=== PATIENT | female | born 1955 | race Two or more races ===

== ENCOUNTER 2024-03-31 15:44 | Inpatient (IN) | payer MEDICARE, OTHER ==
[~2024-03-31] VITALS: Ht 144.8 cm; Wt 55.0 kg
[2024-03-31] MEDS: IPRATROPIUM BROM 0.5 MG/2.5ML INH SOL NEB ONE (16:30)
[2024-03-31] MEDS: ALBUTEROL SULF 2.5 MG/0.5ML(0.5%) NEB SOLN NEB ONE (16:30)
[2024-03-31 16:38] LABS: Basophils # (auto) 0 10 ^3/uL (0-0.2); Basophils % (auto) 0.5 % (0.0-2.0); Eosinophils # (auto) 0 10 ^3/uL (0-0.8); Eosinophils % (auto) 0.6 % (0.0-7.0); Hematocrit 29.7 % (36.0-46.0); Hemoglobin 9.3 g/dL (12.2-16.2); Lymphocytes # (auto) 1.3 10 ^3/uL (0.4-5.4); Lymphocytes % (auto) 24.3 % (10.0-50.0); Mean Corpuscular Hemoglobin 25.8 pg (28.0-32.0); Mean Corpuscular Hgb Conc. 31.5 g/dL (32.0-36.0); Monocytes # (auto) 0.7 10 ^3/uL (0-1.3); Monocytes % (auto) 13.6 % (0.0-12.0); Neutrophils # (auto) 3.2 10 ^3/uL (1.6-8.6); Nucleated Red Blood Cells % 0.1 %; Platelet Count (auto) 279 10^3/uL (140-450); Red Blood Cells 3.62 10^6/uL (4.0-5.20); White Blood Cell 5.3 10^3/uL (4.4-10.8)
[2024-03-31 16:39] LABS: Red Cell Distribution Width 22.2 % (11.8-14.3)
[2024-03-31] MEDS: PIPERACILLIN-TAZOB 3.375GM 100 ML IV ONE (17:15)
[2024-03-31 17:34] LABS: Albumin 3.3 g/dL (3.2-4.8); Alkaline Phosphatase 109 U/L (46-116); Anion Gap 7 (5-15); Aspartate Aminotransferase < 8 U/L (13-40); BUN/Creatinine Ratio 14.7 (10.0-20.0); Blood Urea Nitrogen 16 mg/dL (9-23); Calcium 8.5 mg/dL (8.7-10.4); Carbon Dioxide 24 mmol/L (20-30); Chloride 110 mmol/L (98-107); Glucose 89 mg/dL (74-106); Magnesium 1.6 mg/dL (1.6-2.6); Potassium 3.7 mmol/L (3.5-5.1); Sodium 141 mmol/L (136-145)
[2024-03-31 17:35] LABS: Bilirubin, Total 0.8 mg/dL (0.2-1.0); Total Protein 5.9 g/dL (5.7-8.2)
[2024-03-31 18:29] LABS: Alanine Aminotransferase < 9 U/L (7-40)
[2024-03-31] MEDS: HYDROcodone-ACET 5/325MG TAB PO ONE (18:33)
[2024-03-31 19:21] LABS: Lactic Acid w/Reflex 2.6 mmol/L (0.4-2.0)
[2024-03-31 20:45] VITALS: PULSE 79; RESP 25; O2SAT 97
[2024-03-31] MEDS: NITROGLYCERIN 0.4 MG SL TAB SL ONE (21:36)
[2024-03-31] MEDS: FUROSEMIDE 100 MG/10ML VIAL IV ONE (21:37)
[2024-03-31] MEDS: levoFLOXacin 500 MG TAB PO ONE (21:46)
[2024-03-31] MEDS ORDERED: DOCUSATE SOD 100 MG CAP PO PRN (22:00)
[2024-03-31] MEDS ORDERED: ACETAMINOPHEN 325 MG TAB PO PRN (22:00)
[2024-03-31] MEDS ORDERED: IPRATROPIUM BROM 0.5 MG/2.5ML INH SOL NEB PRN (22:00)
[2024-03-31] MEDS ORDERED: ALBUTEROL SULF 2.5 MG/0.5ML(0.5%) NEB SOLN NEB PRN (22:00)
[2024-03-31 22:09] VITALS: BP 120/70; PULSE 61; RESP 18; O2SAT 96
[2024-03-31 22:18] LABS: Urine Bacteria None Seen /hpf (None Seen)
[2024-03-31 22:29] LABS: Urine Blood Negative /uL (Negative); Urine Clarity Clear (Clear); Urine Color Yellow (Yellow); Urine Hyaline Cast FEW /lpf (0 - 2); Urine Protein, UAD 1+ (Negative); Urine Specific Gravity 1.017 (1.001-1.035); Urine Urobilinogen Normal (Negative); Urine WBC 3 /hpf (0 - 5); Urine pH 5.5 (5.0-9.0)
[2024-03-31] MEDS ORDERED: NITROGLYCERIN 0.4 MG SL TAB SL PRN (22:30)
[2024-03-31] MEDS: APIXABAN 5 MG TAB PO SCH (22:44)
[2024-03-31] MEDS: CARVEDILOL 3.125 MG TAB PO SCH (22:44)
[2024-03-31] MEDS: SODIUM CHLOR 0.9% PF (SALINE LOCK) 10ML VIAL/SYR IV SCH (22:44)
[2024-03-31] MEDS: ATORVASTATIN 20 MG TAB PO SCH (22:45)
[2024-04-01] VITALS (11 sets, daily range): BP systolic 91–129; BP diastolic 50–79; PULSE 59–76; RESP 16–20; TEMP 97.4–98.8; O2SAT 96–100
[2024-04-01 07:11] LABS: Basophils # (auto) 0 10 ^3/uL (0-0.2); Basophils % (auto) 0.6 % (0.0-2.0); Eosinophils # (auto) 0.1 10 ^3/uL (0-0.8); Eosinophils % (auto) 1.2 % (0.0-7.0); Hematocrit 31.2 % (36.0-46.0); Hemoglobin 9.7 g/dL (12.2-16.2); Lymphocytes # (auto) 1.2 10 ^3/uL (0.4-5.4); Lymphocytes % (auto) 23.9 % (10.0-50.0); Mean Corpuscular Hemoglobin 25.8 pg (28.0-32.0); Mean Corpuscular Hgb Conc. 31.2 g/dL (32.0-36.0); Mean Corpuscular Volume 82.8 fL (80.0-100.0); Monocytes # (auto) 0.8 10 ^3/uL (0-1.3); Monocytes % (auto) 15.7 % (0.0-12.0); Neutrophils # (auto) 2.9 10 ^3/uL (1.6-8.6); Neutrophils % (auto) 58.6 % (37.0-80.0); Nucleated Red Blood Cells % 0.1 %; Platelet Count (auto) 263 10^3/uL (140-450); Red Blood Cells 3.77 10^6/uL (4.0-5.20); White Blood Cell 4.9 10^3/uL (4.4-10.8)
[2024-04-01 07:14] LABS: Red Cell Distribution Width 22.4 % (11.8-14.3)
[2024-04-01 07:31] LABS: Alanine Aminotransferase < 9 U/L (7-40); Albumin 3.3 g/dL (3.2-4.8); Alkaline Phosphatase 109 U/L (46-116); Anion Gap 6 (5-15); Aspartate Aminotransferase < 8 U/L (13-40); BUN/Creatinine Ratio 11.4 (10.0-20.0); Blood Urea Nitrogen 14 mg/dL (9-23); Calcium 8.5 mg/dL (8.7-10.4); Carbon Dioxide 26 mmol/L (20-30); Chloride 110 mmol/L (98-107); Glucose 88 mg/dL (74-106); Potassium 3.8 mmol/L (3.5-5.1); Sodium 142 mmol/L (136-145)
[2024-04-01 07:32] LABS: Bilirubin, Total 0.6 mg/dL (0.2-1.0); Total Protein 6.2 g/dL (5.7-8.2)
[2024-04-01] MEDS: FUROSEMIDE 40 MG/4 ML VIAL IV SCH (10:19)
[2024-04-01] MEDS: FAMOTIDINE (10MG/ML) 2ML VL IV SCH (10:19)
[2024-04-01] MEDS: HYDROcodone-ACET 5/325MG TAB PO PRN (15:03)
[2024-04-01 15:44] LABS: Triglycerides 62 mg/dL (< 150)
[2024-04-01 15:45] LABS: LDL Cholesterol 82 mg/dL (< 100)
[2024-04-01 15:46] LABS: Cholesterol 124 mg/dL (< 200); HDL Cholesterol 33 mg/dL (40-59)
[2024-04-01] MEDS ORDERED: BUME1TAB3 PO (16:39)
[2024-04-01] MEDS ORDERED: CARV6.2551 PO (16:39)
[2024-04-01] MEDS ORDERED: SPIR50TA5 PO (16:39)
[2024-04-01] MEDS ORDERED: GABA-339 PO (16:39)
[2024-04-01] MEDS ORDERED: AMIO200T13 PO (16:39)
[2024-04-01] MEDS ORDERED: ATOR40TA52 PO (16:39)
[2024-04-01] MEDS ORDERED: FLUT1AER17 (16:39)
[2024-04-01] MEDS ORDERED: LISI10TA34 PO (16:39)
[2024-04-01] MEDS ORDERED: ALBUTEROL SULF 2.5 MG/0.5ML(0.5%) NEB SOLN NEB PRN (16:45)
[2024-04-01] MEDS: ONDANSETRON HCL 4 MG/2 ML VIAL IV PRN (20:01)
[2024-04-01] MEDS: ATORVASTATIN 20 MG TAB PO SCH (21:22)
[2024-04-01] MEDS: AMIODARONE HCL 200 MG TAB PO SCH (21:22)
[2024-04-01] MEDS: GABAPENTIN 300 MG CAP PO SCH (21:23)
[2024-04-01] MEDS: levoFLOXacin 500MG 100 ML IV SCH (21:24)
[2024-04-01] MEDS: CARVEDILOL 3.125 MG TAB PO SCH (21:30)
[2024-04-01] MEDS: ENOXAPARIN SOD 60 MG/0.6 ML SYRINGE SC SCH (21:33)
[2024-04-01] MEDS ORDERED: GABAPENTIN 300 MG CAP PO SCH (22:00)
[2024-04-02] VITALS (8 sets, daily range): BP systolic 117–130; BP diastolic 61–79; PULSE 64–81; RESP 16–18; TEMP 97.6–98.5; O2SAT 94–100
[2024-04-02] MEDS: BUMETANIDE 1 MG TAB PO SCH (05:44)
[2024-04-02] MEDS: LISINOPRIL 5 MG TAB PO SCH (10:00)
[2024-04-02] MEDS: SPIRONOLACTONE 25 MG TAB PO SCH (10:30)
[2024-04-02 11:17] LABS: Basophils # (auto) 0 10 ^3/uL (0-0.2); Basophils % (auto) 0.6 % (0.0-2.0); Eosinophils # (auto) 0 10 ^3/uL (0-0.8); Eosinophils % (auto) 0.6 % (0.0-7.0); Hematocrit 30.5 % (36.0-46.0); Hemoglobin 9.5 g/dL (12.2-16.2); Lymphocytes # (auto) 1.4 10 ^3/uL (0.4-5.4); Lymphocytes % (auto) 26.3 % (10.0-50.0); Mean Corpuscular Hemoglobin 25.9 pg (28.0-32.0); Mean Corpuscular Hgb Conc. 31.1 g/dL (32.0-36.0); Mean Corpuscular Volume 83.3 fL (80.0-100.0); Monocytes # (auto) 0.9 10 ^3/uL (0-1.3); Monocytes % (auto) 17.1 % (0.0-12.0); Neutrophils % (auto) 55.4 % (37.0-80.0); Platelet Count (auto) 274 10^3/uL (140-450); Red Blood Cells 3.67 10^6/uL (4.0-5.20); White Blood Cell 5.3 10^3/uL (4.4-10.8)
[2024-04-02 11:18] LABS: Red Cell Distribution Width 22.6 % (11.8-14.3)
[2024-04-02 11:29] LABS: Anion Gap 4 (5-15); Calcium 8.2 mg/dL (8.7-10.4); Carbon Dioxide 29 mmol/L (20-30); Chloride 108 mmol/L (98-107); Potassium 3.6 mmol/L (3.5-5.1); Sodium 141 mmol/L (136-145)
[2024-04-02 11:32] LABS: Glucose 69 mg/dL (74-106)
[2024-04-02 11:33] LABS: BUN/Creatinine Ratio 11.3 (10.0-20.0); Blood Urea Nitrogen 13 mg/dL (9-23)
[2024-04-02 11:36] LABS: Magnesium 1.5 mg/dL (1.6-2.6)
[2024-04-03 01:00] VITALS: BP 100/53; PULSE 61; RESP 16; TEMP 98.1; O2SAT 100
[2024-04-03 05:00] VITALS: BP 91/51; PULSE 70; RESP 16; TEMP 98.1; O2SAT 95
[2024-04-03 08:00] VITALS: BP 119/68; PULSE 61; RESP 18; TEMP 98.1; O2SAT 99
[2024-04-03 09:22] VITALS: O2SAT 99
[2024-04-03 12:00] VITALS: BP_SYST 117; BP_SYST 131; BP_DIAS 63; BP_DIAS 67; PULSE 67; PULSE 76; RESP 18; TEMP 97.8; TEMP 98.3; O2SAT 96; O2SAT 97
[2024-04-03 16:00] VITALS: BP 128/63; PULSE 89; RESP 16; TEMP 98.6; O2SAT 97
== END 2024-04-03 19:42 | disposition home health service (06) | DRG 190 ==
LOC: EDBD 15:44 → ER 16:37 → TELE-WESTW 22:28 → TELE 22:28 → TELE-WESTW 04-01 01:15
PROVIDERS: ADMIT Nurse Practitioner Family; ATTEND Nurse Practitioner
DX: I21.4 Non-ST elevation (NSTEMI) myocardial infarction (principal); I50.43 Acute on chronic combined systolic (congestive) and diastolic (congestive) heart failure; E87.20 Acidosis, unspecified; D63.8 Anemia in other chronic diseases classified elsewhere; I11.0 Hypertensive heart disease with heart failure; I48.91 Unspecified atrial fibrillation; K43.9 Ventral hernia without obstruction or gangrene; Z88.0 Allergy status to penicillin; Z90.710 Acquired absence of both cervix and uterus; Z91.199 Patient's noncompliance with other medical treatment and regimen due to unspecified reason; Z79.899 Other long term (current) drug therapy
CPT/HCPCS: 36415; 71045; 80048; 80053; 80061; 81001; 83605; 83735; 83880; 84484; 85025; 86850; 86900; 86901; 87081; 93005; 93306; 94640; 96374; 99291; G0378; J1956; J2405; J2543; J3490

== ENCOUNTER 2025-06-02 18:45 | Inpatient (IN) | payer MEDICARE, OTHER ==
[~2025-06-02] VITALS: Ht 144.8 cm; Wt 49.0 kg
[~2025-06-02 18:45] MED LIST: AMIO200T13 PO; ATOR40TA52 PO; BUME1TAB3 PO; CARV6.2551 PO; FLUT1AER17; GABA-339 PO; LISI10TA34 PO; SPIR50TA5 PO
--- NOTE | 2025-06-02 19:20 | ECG ---
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
[2025-06-02] MEDS: SODIUM CHLORIDE 0.9% 250 ML IV ONE (19:30)
--- NOTE | 2025-06-02 19:33 | ED.PDOC ---
HPI Comments 69 year old female presents to the ED via EMS with a chief compliant of hypotension onset today (06/02/25). Per EMS, patient's home health nurse went to drain port on RT side chest, called 911 due to patient's low BP. Upon EMS arrival BP was 108/63, in route to ED, BP dropped to 90/56, IVF were given as well as 1g Tylenol. Patient is currently experiencing RT sided chest pain, near port region, rates pain 6/10. Per EMS, patient has been to ED a few times over the past 8 months for similar symptoms. Denies shortness of breath, dizziness, headache, nausea, vomiting, diarrhea, numbness/tingling, fever, chills. No other symptoms or modifying factors present at this time. Chief Complaint: Low Blood Pressure Time Seen by MD: 19:15 Primary Care Provider: AZUL Reviewed Notes: Medications, Allergies Allergies: Coded Allergies: Morphine (Verified Allergy, Unknown, 03/31/24) Penicillins (Verified Allergy, Unknown, 03/31/24) Home Meds Reported Medications Gabapentin (Gabapentin) 600 Mg Tab, 1 TAB PO TID 04/01/24 Dhrbdwxrsdj-Xteulgzxeelv-Vszgp (Trelegy Ellipta 200-62.5-25 Mcg/INH) 1 Aer Aer 04/01/24 Atorvastatin Calcium (ATORVASTATIN CALCIUM) 40 Mg Tab, 1 TAB PO DAILY 04/01/24 Bumetanide (Bumetanide) 1 Mg Tab, 1 TAB PO BID 04/01/24 Spironolactone (Spironolactone) 50 Mg Tab, 1 TAB PO DAILY 04/01/24 Lisinopril (Lisinopril) 10 Mg Tab, 1 TAB PO DAILY 04/01/24 Amiodarone HCl (Amiodarone HCl) 200 Mg Tab, 1 TAB PO BID 04/01/24 Carvedilol (Carvedilol) 6.25 Mg Tab, 1 TAB PO BID 04/01/24 Information Source: Patient, Emergency Med Personnel Mode of Arrival: EMS Severity: Moderate Timing: Hours Duration: Since onset Prehospital treatment: IVF Location: Chest (R) Radiation: No Radiation Quality: Sharp Onset: At Rest PE Risk Factors: None History of: Aspirin Modifying Factors: Nothing Vital Signs Vital Signs Date Time Temp Pulse Resp B/P (MAP) Pulse Ox O2 Delivery O2 Flow Rate FiO2 10/22/25 20:00 59 06/02/25 19:51 98.1 18 90/54 (66) 97 98.1 Physical Exam PHYSICAL EXAM: General: Awake, alert and oriented. No acute distress. Skin: Skin in warm, dry and intact. Appropriate color for ethnicity. HEENT: The head is normocephalic and atraumatic. Conjunctivae are clear without exudates or hemorrhage. Sclera is non-icteric. EOM are intact. No signs of nystagmus. Eyelids are normal in appearance without swelling or lesions. Oral mucosa is pink and moist Neck: The neck is supple with normal range of motion. No JVD. Cardiac: Heart rate and rhythm are normal. No murmurs, gallops, or rubs are auscultated. Chest: Pleural drain and present in right chest wall Respiratory: No signs of respiratory distress. Lung sounds are clear in all lobes bilaterally without rales, rhonchi, or wheezes. Abdominal: Abdomen is soft, non-tender without distention, guarding or rigidity. Bowel sounds are present and normoactive in all four quadrants. Extremities: Upper and lower extremities are atraumatic in appearance without deformity or edema. Neurological: The patient is awake, alert and oriented to person, place, and time with normal speech. Speech is clear. There is no facial asymmetry. Psychiatric: Appropriate mood and affect. Good judgement and insight. Review of Systems: REVIEW OF SYSTEMS: General: No fever, no chills, or fatigue HEENT: No sore throat, no earache, no congestion, no neck pain. Cardiac: No chest pain. No palpitations. Lungs: No shortness of breath, no cough. GI: No nausea, no vomiting, no diarrhea, no constipation, no abdominal pain : No dysuria, frequency, or urgency. No hematuria. Musculoskeletal: No joint pain , no joint swelling, no extremity edema. Skin: No rash, no itching. Neuro: No headache, no dizziness, no weakness Was a procedure done? Was a procedure done?: No CP Differential Dx Differential Diagnosis: Other (Hypovolemia, sepsis, infection, CHF exacerbation, dehydration, other) X-Ray, Labs, Meds, VS Vital Signs Date Time Temp Pulse Resp B/P (MAP) Pulse Ox O2 Delivery O2 Flow Rate FiO2 06/02/25 20:00 59 06/02/25 19:51 98.1 78 18 90/54 (66) 97 98.1 06/02/25 18:46 98.6 60 16 90/56 100 98.6 06/02/25 18:45 58 Lab Test 06/02/25 20:37 06/02/25 19:41 Range/Units Troponin I High Sensitivity Pending 252 *H </=34 ng/L White Blood Count 5.2 4.4-10.8 10^3/uL Red Blood Count 3.18 L 4.0-5.20 10^6/uL Hemoglobin 9.0 L 12.2-16.2 g/dL Hematocrit 29.7 L 36.0-46.0 % Mean Corpuscular Volume 93.6 80.0-100.0 fL Mean Corpuscular Hemoglobin 28.3 28.0-32.0 pg Mean Corpuscular Hemoglobin Concent 30.3 L 32.0-36.0 g/dL Red Cell Distribution Width 20.1 H 11.8-14.3 % Platelet Count 262 140-450 10^3/uL Mean Platelet Volume 8.4 6.9-10.8 fL Neutrophils (%) (Auto) 55.7 37.0-80.0 % Lymphocytes (%) (Auto) 26.8 10.0-50.0 % Monocytes (%) (Auto) 15.8 H 0.0-12.0 % Eosinophils (%) (Auto) 0.8 0.0-7.0 % Basophils (%) (Auto) 0.9 0.0-2.0 % Neutrophils # (Auto) 2.9 1.6-8.6 10 ^3/uL Lymphocytes # (Auto) 1.4 0.4-5.4 10 ^3/uL Monocytes # (Auto) 0.8 0-1.3 10 ^3/uL Eosinophils # (Auto) 0 0-0.8 10 ^3/uL Basophils # (Auto) 0 0-0.2 10 ^3/uL Nucleated Red Blood Cells 0.2 % Sodium Level 141 136-145 mmol/L Potassium Level 3.4 L 3.5-5.1 mmol/L Chloride Level 108 H 98-107 mmol/L Carbon Dioxide Level 23 20-31 mmol/L Anion Gap 10 5-15 Blood Urea Nitrogen 13 9-23 mg/dL Creatinine 0.87 0.550-1.02 mg/dL Glomerular Filtration Rate Calc 72 >90 mL/min BUN/Creatinine Ratio 14.9 10.0-20.0 Serum Glucose 84 74-106 mg/dL Calcium Level 7.2 L 8.7-10.4 mg/dL B-Type Natriuretic Peptide > 5000.00 0-100 pg/mL Current Medications Medications (Trade) Dose Ordered Sig/Aristides Route Start Time Stop Time Status Last Admin Sodium Chloride 250 ml @ 250 mls/hr Q1H ONCE IV 06/02/25 19:30 06/02/25 20:29 DC 06/02/25 19:30 Acetaminophen/ Hydrocodone Bitart ([place] 5/325MG Tab) 1 tab ONCE ONCE PO 06/02/25 20:00 06/02/25 20:02 DC 06/02/25 20:00 Time of 1ST Reevaluation: 19:45 Reevaluation 1ST: Unchanged Patient Education/Counseling: Other (Need for admission) Family Education/Counseling: No Family Present SEPSIS Sepsis Screen Date sepsis recognized/suspect: Jun 02, 2025 Time Sepsis recognized/suspect: 1845 Recent Procedure: No On Antibiotic Therapy: No Respiratory Rate >20: No Heart Rate >90: No Temp<36 C (96.8 F) or >38.3 C: No SBP <90 or MAP <65 mmHG: No New Acute Mental Status Change: No Is the patient on CPAP, BIPAP,: No Physician Orders Chest Xray 1 View (06/02/25 19:20) Vital Signs Q1HR (06/02/25 19:20) Saline Lock (06/02/25 19:20) Dirt Supervisor (06/02/25 ) Troponin-I Hs (06/02/25 20:20) Troponin-I Hs (06/02/25 22:20) Vital Signs Date Time Temp Pulse Resp B/P (MAP) Pulse Ox O2 Delivery O2 Flow Rate FiO2 06/02/25 20:00 59 06/02/25 19:51 98.1 78 18 90/54 (66) 97 98.1 06/02/25 18:46 98.6 60 16 90/56 100 98.6 06/02/25 18:45 58 Laboratory Tests Test 06/02/25 19:41 White Blood Count 5.2 10^3/uL (4.4-10.8) Medications Medications Dose Ordered Sig/Aristides Route Start Time Stop Time Status Last Admin Dose Admin Acetaminophen/ Hydrocodone Bitart 1 tab ONCE ONCE PO 06/02/25 20:00 06/02/25 20:02 DC 06/02/25 20:00 Sodium Chloride 250 ml @ 250 mls/hr Q1H ONCE IV 06/02/25 19:30 06/02/25 20:29 DC 06/02/25 19:30 Departure 1 Departure Time of Disposition: : Impression: Primary Impression: Chest pain Additional Impressions: CHF (congestive heart failure) Hypotension Disposition: ADMITTED INPATIENT Condition: Stable Comments MDM: Patient admitted to hospitalist service for further treatment, evaluation and monitoring. Extensive evaluation was performed in attempt to identify or rule out: (See differential diagnosis section) The following tests were ordered, and results were reviewed by me and discussed with patient: (See diagnostic results section) The following test were independently interpreted by me: EKG I reviewed and agreed with the following test results read by other providers: Chest x-ray I reviewed the following notes from the pt's past medical encounters: N/A Additional information was gathered from interviewing the following independent historians: EMS personnel Discussion of management or test interpretation with external physician/other qualified health day care supervisor: N/A Addressed [ ]one or more chronic illnesses with severe exacerbation, progression, or side effects of treatment: CHF Decision regarding hospitalization or escalation of hospital level of care: Risk and benefits of admission for further treatment of patient's condition was considered. Due to patient's current clinical condition, high risk of decline and poor outcome if discharged and need for further inpatient management and monitoring, patient will be admitted to the hospital. Critical Care Note Critical Care Time?: No Stability Stability form required: No Heart Score Heart Score: Heart Score Response (Comments) Value History N/A 0 EKG N/A 0 Age N/A 0 Risk Factors N/A 0 Troponin N/A 0 Total 0 I personally scribed for CARLOS LAIRD MD ([email or web address]) on 06/02/25 at 19:33. Electronically submitted by Lyly [email or web address]). CARLOS LAIRD MD Jun 02, 2025 19:33
[2025-06-02] MEDS: HYDROcodone-ACET 5/325MG TAB PO ONE (20:00)
[2025-06-02 20:03] LABS: Hemoglobin 9.0 g/dL (12.2-16.2); Nucleated Red Blood Cells % 0.2 %
[2025-06-02 20:05] LABS: Hematocrit 29.7 % (36.0-46.0); Mean Corpuscular Hemoglobin 28.3 pg (28.0-32.0); Mean Corpuscular Volume 93.6 fL (80.0-100.0)
[2025-06-02 20:12] LABS: Sodium 141 mmol/L (136-145)
[2025-06-02 20:13] LABS: Anion Gap 10 (5-15); Carbon Dioxide 23 mmol/L (20-31)
[2025-06-02 20:18] LABS: BUN/Creatinine Ratio 14.9 (10.0-20.0); Blood Urea Nitrogen 13 mg/dL (9-23); Glucose 84 mg/dL (74-106)
[2025-06-02 20:21] LABS: Calcium 7.2 mg/dL (8.7-10.4); Chloride 108 mmol/L (98-107); Potassium 3.4 mmol/L (3.5-5.1)
--- NOTE | 2025-06-02 20:56 | DVH ---
CHEST RADIOGRAPH Indication: cp Technique: Single frontal view of the chest was obtained Comparison: XR CHEST 1 VIEW on DOS: 10/19/24, XR CHEST 1 VIEW on DOS: 10/18/24, XR CHEST 1 VIEW on DOS: 10/15/24, XY CHEST PORTABLE on DOS: 03/31/24, XR CHEST 1 VIEW on DOS: 11/28/23 FINDINGS/IMPRESSION: Bilateral mid to lower lung opacities, likely at least partially on the basis of pleural effusion. P rominence of the interstitial markings. Enlargement of the cardiomediastinal silhouette. Median zuleyka rnotomy changes are noted. No pneumothorax. No acute osseous abnormality.
[2025-06-02 21:37] VITALS: PULSE 58; RESP 18; O2SAT 97
[2025-06-03] MEDS ORDERED: TEMAZEPAM 15 MG CAP PO PRN (00:15)
[2025-06-03] MEDS: MIDODRINE HCL 10 MG TAB PO SCH (00:15)
[2025-06-03] MEDS ORDERED: HYDROmorphone HCL 2 MG/ML VL/or syr IV PRN (00:15)
[2025-06-03] MEDS ORDERED: NITROGLYCERIN 0.4 MG SL TAB SL PRN (00:15)
[2025-06-03] MEDS ORDERED: DOCUSATE SOD 100 MG CAP PO PRN (00:15)
[2025-06-03] MEDS: ALBUMIN 25% 50 ML IV ONE (04:17)
[2025-06-03] MEDS: PANTOPRAZOLE 40 MG/10 ML VIAL INJ IV SCH (10:00)
[2025-06-03 13:30] VITALS: O2SAT 100
--- NOTE | 2025-06-03 15:59 | ECG ---
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
--- NOTE | 2025-06-03 16:02 | DVHHP2 ---
Admitting Diagnosis: Hypotension History of Present Illness 69 year old female is complaining of hypotension that was noticed by home health nurse. Home health nurse went to drain patients port to right chest. Blood pressure was 108/63 and in route it dropped to 90/56. Patient states she is having pain to chest area where port is located. While in the emergency department the patient was evaluated by the provider. Patient will be admitted for further evaluation and treatment. I discussed admission with the patient/family and is in agreement to treatment plan. Patient Family History: Patient reports no known family medical history. Allergies: Coded Allergies: Morphine (Verified Allergy, Unknown, 03/31/24) Penicillins (Verified Allergy, Unknown, 03/31/24) Home Meds Reported Medications Gabapentin (Gabapentin) 600 Mg Tab, 1 TAB PO TID 04/01/24 Grdusbiziso-Oivwiqxveelt-Pfzyk (Trelegy Ellipta 200-62.5-25 Mcg/INH) 1 Aer Aer 04/01/24 Atorvastatin Calcium (ATORVASTATIN CALCIUM) 40 Mg Tab, 1 TAB PO DAILY 04/01/24 Bumetanide (Bumetanide) 1 Mg Tab, 1 TAB PO BID 04/01/24 Spironolactone (Spironolactone) 50 Mg Tab, 1 TAB PO DAILY 04/01/24 Lisinopril (Lisinopril) 10 Mg Tab, 1 TAB PO DAILY 04/01/24 Amiodarone HCl (Amiodarone HCl) 200 Mg Tab, 1 TAB PO BID 04/01/24 Carvedilol (Carvedilol) 6.25 Mg Tab, 1 TAB PO BID 04/01/24 Current Medications Current Medications Medications (Trade) Dose Ordered Sig/Aristides Route PRN Reason Start Time Stop Time Status Last Admin Acetaminophen/ Hydrocodone Bitart ([place] 5/325MG Tab) 1 tab Q4HP PRN PO MODERATE PAIN (4-6 PAIN SCALE) 06/03/25 00:15 Temazepam (Restoril) 15 mg QHSP PRN PO FOR INSOMNIA 06/03/25 00:15 Ondansetron HCl (Zofran) 4 mg Q4HP PRN IV NAUSEA / VOMITING 06/03/25 00:15 Docusate Sodium (Colace Capsule) 100 mg BIDPRN PRN PO FOR CONSTIPATION 06/03/25 00:15 Acetaminophen (Tylenol Tablet) 650 mg Q6HP PRN PO PAIN SCALE 1-3 OR TEMP>100.4 06/03/25 00:15 Hydromorphone HCl (Dilaudid Injection) 0.4 mg Q6HP PRN IV PAIN SCALE 7 THRU 10 06/03/25 00:15 Midodrine (Proamatine Tablet) 10 mg TID PO 06/03/25 00:15 06/03/25 14:50 Pantoprazole Sodium (Protonix) 40 mg DAILY IV 06/03/25 10:00 06/03/25 10:00 Nitroglycerin (Ntrostat Sublingual) 0.4 mg Q5MINP PRN SL FOR CHEST PAIN 06/03/25 00:15 Doxycycline Hyclate 100 ml @ 50 mls/hr Q12H IV 06/03/25 18:00 Albuterol (Ventolin Medneb) 2.5 mg Q6HPRN PRN NEB SHORTNESS OF BREATH 06/03/25 18:00 Heparin Sodium (Porcine) 5,000 units Q8HR SC 06/03/25 22:00 Review of Systems Constitutional: denies chills, denies fever, denies malaise Eyes: denies eye pain, denies vision change ENT: denies ear pain, denies headache, denies nasal congestion, denies painful swallowing, denies voice change Cardiovascular: denies chest pain, denies edema, denies orthopnea, denies pa lpitations, denies paroxysmal nocturnal dyspnea Respiratory: denies cough, denies shortness of breath Gastrointestinal: denies constipation, denies diarrhea, denies nausea, denies vomiting Genitourinary: denies dysuria, denies frequent urination, denies urethral discharge Musculoskeletal: denies back pain, denies joint pain, denies muscle pain Skin: denies bruising, denies itching, denies rash Neurological: denies focal weakness, denies headache, denies sensory changes Psychiatric: denies anxiety, denies depression Endocrine: denies polydipsia, denies polyuria Hematologic/Lymphatic: denies easy bleeding, denies easy bruising, denies enlarged lymph nodes Allergic/Immunologic: denies allergy, denies hives Vital Signs Vital Signs Date Time Temp Pulse Resp B/P (MAP) Pulse Ox O2 Delivery O2 Flow Rate FiO2 06/03/25 18:13 98.8 65 18 122/75 100 3.0 98.8 06/03/25 13:30 Nasal Cannula* 28 Physical Exam General Appearance: alert, no distress HEENT: EOMI, PERRLA, normal external inspect of ears, no icterus, no nasal drainage Neck: no carotid bruit, no jugular venous distention (JVD), no lymphadenopathy Chest: normal thorax Respiratory: clear to auscultation, normal air movement Cardiovascular: regular rate and rhythm, no diastolic murmur, no jugular venous distention (JVD), no rub, no systolic murmur Abdominal: soft, no hepatomegaly, no mass, no splenomegaly, no tenderness Musculoskeletal: no joint tenderness, no swelling Extremities: normal pulses, no calf tenderness, no clubbing, no cyanosis, no edema Skin: no bruising, no jaundice, no rash Neurological: alert, No focal deficit SEPSIS Sepsis Screen Date sepsis recognized/suspect: Jun 02, 2025 Time Sepsis recognized/suspect: 2138 Recent Procedure: No On Antibiotic Therapy: No Respiratory Rate >20: No Heart Rate >90: No Temp<36 C (96.8 F) or >38.3 C: No SBP <90 or MAP <65 mmHG: No New Acute Mental Status Change: No Is the patient on CPAP, BIPAP,: No Physician Orders Chest Xray 1 View (06/02/25 19:20) Saline Lock (06/02/25 19:20) Braiding Machine Operator (06/02/25 ) Admit (06/03/25 00:02) Code Status (06/03/25 00:02) Oxygen Per Hour (06/03/25 00:02) Hydrocodone-Acet 5/325mg Tab ([place] 5/32 (06/03/25 00:15) Temazepam (Restoril) (06/03/25 00:15) Ondansetron Hcl (Zofran) (06/03/25 00:15) Docusate Sodium Capsule (Colace Capsule) (06/03/25 00:15) Complete Blood Count (06/04/25 04:00) Comprehensive Metabolic Panel (06/04/25 04:00) Condition: Stable (06/03/25 00:02) Acetaminophen Tablet (Tylenol Tablet) (06/03/25 00:15) *Consult Dr.Mukeshchandra Alonso (06/03/25 00:02) Hydromorphone Injection (Dilaudid Inject (06/03/25 00:15) Midodrine Tablet (Proamatine Tablet) (06/03/25 00:15) *Consult (06/03/25 00:02) Pantoprazole (Protonix) (06/03/25 10:00) Nitroglycerin Sublingual (Ntrostat Subli (06/03/25 00:15) Stat Ekg For Chest Pain (06/03/25 00:02) Notify Md Of Changes From Base (06/03/25 00:02) Administrative Office Clerk For 24 Hours (06/03/25 00:02) Emergency Dysrhythmia Protocol (06/03/25 00:02) Rhythm Strips Once Every Shift (06/03/25 00:02) Oxygen By Nasal Cannula (06/03/25 00:02) Soft Diet (06/03/25 Dinner) Mehta Catheters (06/03/25 ) Communication Order (06/03/25 16:59) * Manager Commission Consult (06/03/25 ) Doxycycline 100mg/100ml (Vibramycin) (06/03/25 18:00) Albuterol Medneb (Ventolin Medneb) (06/03/25 18:00) Heparin Sodium (Porcine) (06/03/25 22:00) Vital Signs Date Time Temp Pulse Resp B/P (MAP) Pulse Ox O2 Delivery O2 Flow Rate FiO2 06/03/25 18:13 98.8 65 18 122/75 100 3.0 98.8 06/03/25 17:00 71 22 114/67 (83) 100 06/03/25 16:00 53 06/03/25 15:30 98.8 59 18 104/61 (75) 100 98.8 06/03/25 13:30 98.8 73 18 91/46 (61) 100 98.8 06/03/25 13:30 100 Nasal Cannula* 2 28 06/03/25 12:00 51 06/03/25 08:00 51 06/03/25 07:05 98.1 47 20 97/50 (66) 97 98.1 06/03/25 04:00 48 06/03/25 03:59 98.1 45 20 92/51 (65) 97 98.1 06/03/25 01:30 98.1 55 18 92/54 (67) 97 98.1 06/03/25 00:00 46 06/02/25 23:23 98.1 45 18 87/49 (62) 97 98.1 06/02/25 21:37 58 18 97 Nasal Cannula* 3 32 06/02/25 20:00 59 06/02/25 19:51 98.1 78 18 90/54 (66) 97 98.1 06/02/25 18:46 98.6 60 16 90/56 100 98.6 06/02/25 18:45 58 Laboratory Tests Test 06/02/25 19:41 White Blood Count 5.2 10^3/uL (4.4-10.8) Medications Medications Dose Ordered Sig/Aristides Route Start Time Stop Time Status Last Admin Dose Admin Pantoprazole Sodium 40 mg DAILY IV 06/03/25 10:00 06/03/25 10:00 Results Labs Test 06/02/25 22:41 06/02/25 19:41 Range/Units Troponin I High Sensitivity 294 *H </=34 ng/L White Blood Count 5.2 4.4-10.8 10^3/uL Red Blood Count 3.18 L 4.0-5.20 10^6/uL Hemoglobin 9.0 L 12.2-16.2 g/dL Hematocrit 29.7 L 36.0-46.0 % Mean Corpuscular Volume 93.6 80.0-100.0 fL Mean Corpuscular Hemoglobin 28.3 28.0-32.0 pg Mean Corpuscular Hemoglobin Concent 30.3 L 32.0-36.0 g/dL Red Cell Distribution Width 20.1 H 11.8-14.3 % Platelet Count 262 140-450 10^3/uL Mean Platelet Volume 8.4 6.9-10.8 fL Neutrophils (%) (Auto) 55.7 37.0-80.0 % Lymphocytes (%) (Auto) 26.8 10.0-50.0 % Monocytes (%) (Auto) 15.8 H 0.0-12.0 % Eosinophils (%) (Auto) 0.8 0.0-7.0 % Basophils (%) (Auto) 0.9 0.0-2.0 % Neutrophils # (Auto) 2.9 1.6-8.6 10 ^3/uL Lymphocytes # (Auto) 1.4 0.4-5.4 10 ^3/uL Monocytes # (Auto) 0.8 0-1.3 10 ^3/uL Eosinophils # (Auto) 0 0-0.8 10 ^3/uL Basophils # (Auto) 0 0-0.2 10 ^3/uL Nucleated Red Blood Cells 0.2 % Sodium Level 141 136-145 mmol/L Potassium Level 3.4 L 3.5-5.1 mmol/L Chloride Level 108 H 98-107 mmol/L Carbon Dioxide Level 23 20-31 mmol/L Anion Gap 10 5-15 Blood Urea Nitrogen 13 9-23 mg/dL Creatinine 0.87 0.550-1.02 mg/dL Glomerular Filtration Rate Calc 72 >90 mL/min BUN/Creatinine Ratio 14.9 10.0-20.0 Serum Glucose 84 74-106 mg/dL Calcium Level 7.2 L 8.7-10.4 mg/dL B-Type Natriuretic Peptide > 5000.00 0-100 pg/mL Admitting Diagnosis: -Acute on chronic systolic and diastolic heart failure Cardiology consult -COPD exacerbation Pulmonary consult, Med-Neb treatments -Chronic anticoagulation Medication, monitoring -Anemia of chronic disease Monitor - Severe protein calorie malnutrition - Acute on chronic hypoxic respiratory failure Pulmonology consult, O2 as needed -Atrial fibrillation Cardiology consult, medication, monitor EKG - Bradycardia Monitor EKG, medication - Hypotension Hold BP medication Plan discussed with: Patient, Other GERSON NOLEN NP Jun 03, 2025 16:02
[2025-06-03] MEDS ORDERED: DOXYCYCLINE 100MG/100ML 100 ML IV SCH (18:00)
[2025-06-03 18:13] VITALS: BP 122/75; PULSE 65; RESP 18; TEMP 98.8; O2SAT 100
--- NOTE | 2025-06-03 18:29 | DVHINCON2 ---
Date of service: Jun 03, 2025 Referring Physician Sahil Reason for Consultation Chest pain History of Present Illness This is a 69 year old female with a PMH of MA, Afib, COPD, HTN, CHF, Thyroid who presents to the ED via EMS with a compliant of hypotension onset yesterday (06/02/25). Per EMS, patient's home health nurse went to drain port on the right side of her chest, called 911 due to patient's low BP. Upon EMS arrival BP was 108/63, in route to ED, BP dropped to 90/56, IVF were given as well as 1g Tylenol. Patient is currently experiencing right sided chest pain, near port region, rates pain 6/10. Per EMS, patient has been to ED a few times over the past 8 months for similar symptoms. HGB 9, HCT 29.7, K 3.4, CL 108, TROP 252, 290, 294. Chest x-ray showed bilateral mid to lower lung opacities, likely at least partially on the basis of pleural effusion. Prominence of the interstitial markings. Enlargement of the cardiomediastinal silhouette. Median sternotomy changes are noted. No pneumothorax. No acute osseous abnormality. Patient was admitted to the hospital. I am asked to consult on this patient. Family History: Patient reports no known family medical history. Allergies: Coded Allergies: Morphine (Verified Allergy, Unknown, 03/31/24) Penicillins (Verified Allergy, Unknown, 03/31/24) Home Meds Reported Medications Gabapentin (Gabapentin) 600 Mg Tab, 1 TAB PO TID 04/01/24 Jaqwyqhswkc-Cerlelytpjmd-Oynbb (Trelegy Ellipta 200-62.5-25 Mcg/INH) 1 Aer Aer 04/01/24 Atorvastatin Calcium (ATORVASTATIN CALCIUM) 40 Mg Tab, 1 TAB PO DAILY 04/01/24 Bumetanide (Bumetanide) 1 Mg Tab, 1 TAB PO BID 04/01/24 Spironolactone (Spironolactone) 50 Mg Tab, 1 TAB PO DAILY 04/01/24 Lisinopril (Lisinopril) 10 Mg Tab, 1 TAB PO DAILY 04/01/24 Amiodarone HCl (Amiodarone HCl) 200 Mg Tab, 1 TAB PO BID 04/01/24 Carvedilol (Carvedilol) 6.25 Mg Tab, 1 TAB PO BID 04/01/24 Current Medications Current Medications Medications (Trade) Dose Ordered Sig/Aristides Route PRN Reason Start Time Stop Time Status Last Admin Acetaminophen/ Hydrocodone Bitart (Norris 5/325MG Tab) 1 tab Q4HP PRN PO MODERATE PAIN (4-6 PAIN SCALE) 06/03/25 00:15 Temazepam (Restoril) 15 mg QHSP PRN PO FOR INSOMNIA 06/03/25 00:15 Ondansetron HCl (Zofran) 4 mg Q4HP PRN IV NAUSEA / VOMITING 06/03/25 00:15 Docusate Sodium (Colace Capsule) 100 mg BIDPRN PRN PO FOR CONSTIPATION 06/03/25 00:15 Acetaminophen (Tylenol Tablet) 650 mg Q6HP PRN PO PAIN SCALE 1-3 OR TEMP>100.4 06/03/25 00:15 Hydromorphone HCl (Dilaudid Injection) 0.4 mg Q6HP PRN IV PAIN SCALE 7 THRU 10 06/03/25 00:15 Midodrine (Proamatine Tablet) 10 mg TID PO 06/03/25 00:15 06/03/25 06:11 Pantoprazole Sodium (Protonix) 40 mg DAILY IV 06/03/25 10:00 06/03/25 10:00 Nitroglycerin (Ntrostat Sublingual) 0.4 mg Q5MINP PRN SL FOR CHEST PAIN 06/03/25 00:15 Review of Systems General: No fever, no chills, or fatigue HEENT: No sore throat, no earache, no congestion, no neck pain. Cardiac: No chest pain. No palpitations. Lungs: No shortness of breath, no cough. GI: No nausea, no vomiting, no diarrhea, no constipation, no abdominal pain : No dysuria, frequency, or urgency. No hematuria. Musculoskeletal: No joint pain , no joint swelling, no extremity edema. Skin: No rash, no itching. Neuro: No headache, no dizziness, no weakness Vital Signs Vital Signs Date Time Temp Pulse Resp B/P (MAP) Pulse Ox O2 Delivery O2 Flow Rate FiO2 06/03/25 12:00 51 06/03/25 07:05 98.1 20 97/50 (66) 97 98.1 06/02/25 21:37 Nasal Cannula* 3 32 Physical Exam GENERAL: Alert and oriented x 3. No acute distress. EYES: PERRL, EOMI. Anicteric. HENT: Moist mucous membranes. LUNGS: Clear to auscultation bilaterally. CARDIOVASCULAR: Regular rate and rhythm. ABDOMEN: Soft, nontender and nondistended. EXTREMITIES: No edema. NEUROLOGIC: No focal neurological deficits. SKIN: Warm, dry. Labs/Diagnostic Data Labs Test 06/02/25 22:41 06/02/25 19:41 Range/Units Troponin I High Sensitivity 294 *H </=34 ng/L White Blood Count 5.2 4.4-10.8 10^3/uL Red Blood Count 3.18 L 4.0-5.20 10^6/uL Hemoglobin 9.0 L 12.2-16.2 g/dL Hematocrit 29.7 L 36.0-46.0 % Mean Corpuscular Volume 93.6 80.0-100.0 fL Mean Corpuscular Hemoglobin 28.3 28.0-32.0 pg Mean Corpuscular Hemoglobin Concent 30.3 L 32.0-36.0 g/dL Red Cell Distribution Width 20.1 H 11.8-14.3 % Platelet Count 262 140-450 10^3/uL Mean Platelet Volume 8.4 6.9-10.8 fL Neutrophils (%) (Auto) 55.7 37.0-80.0 % Lymphocytes (%) (Auto) 26.8 10.0-50.0 % Monocytes (%) (Auto) 15.8 H 0.0-12.0 % Eosinophils (%) (Auto) 0.8 0.0-7.0 % Basophils (%) (Auto) 0.9 0.0-2.0 % Neutrophils # (Auto) 2.9 1.6-8.6 10 ^3/uL Lymphocytes # (Auto) 1.4 0.4-5.4 10 ^3/uL Monocytes # (Auto) 0.8 0-1.3 10 ^3/uL Eosinophils # (Auto) 0 0-0.8 10 ^3/uL Basophils # (Auto) 0 0-0.2 10 ^3/uL Nucleated Red Blood Cells 0.2 % Sodium Level 141 136-145 mmol/L Potassium Level 3.4 L 3.5-5.1 mmol/L Chloride Level 108 H 98-107 mmol/L Carbon Dioxide Level 23 20-31 mmol/L Anion Gap 10 5-15 Blood Urea Nitrogen 13 9-23 mg/dL Creatinine 0.87 0.550-1.02 mg/dL Glomerular Filtration Rate Calc 72 >90 mL/min BUN/Creatinine Ratio 14.9 10.0-20.0 Serum Glucose 84 74-106 mg/dL Calcium Level 7.2 L 8.7-10.4 mg/dL B-Type Natriuretic Peptide > 5000.00 0-100 pg/mL Assessment Chest pain. SOB. Hypotension. Plan/Recommendation I agree with your ongoing assessment and care of plan. Dilaudid and Norris for pain management. Nitro SL. GI prophylactics. Additional plan as per the hospital course. A total of 45 minutes was spent reviewing the patient record, examining the patient, making a diagnostic and therapeutic plan, discussing this plan with medical personnel, following up on diagnostic studies and following the patient for clinical stability excluding any and all procedures. At least 50% of this time was spent in direct, [id number] contact. Plan discussed with: Patient BRIANA JHA MD Jun 03, 2025 13:24
[2025-06-03 19:48] VITALS: BP 126/63; PULSE 60; RESP 16; RESP 19; TEMP 97.8; O2SAT 100; O2SAT 98
[2025-06-03 20:05] VITALS: PULSE 68
[2025-06-03 20:30] VITALS: PULSE 60; RESP 16; O2SAT 97
[2025-06-03] MEDS: HYDROcodone-ACET 5/325MG TAB PO PRN (20:55)
[2025-06-03] MEDS: HEPARIN SODIUM (PORCINE) 5000 UNITS/ML 1ML VIAL SC SCH (20:59)
--- NOTE | 2025-06-03 21:04 | DVHINCON2 ---
Date of service: Jun 03, [address] [facility] Reason for Consultation Acute on chronic hypoxic respiratory failure, COPD exacerbation History of Present Illness A 69-year-old woman with past medical history of COPD, hypertension, GA, A-fib, CHF, and thyroid disease who presented to ED on 06/02/25 complaining of hypotension that was noticed by home health nurse. Home health nurse went to drain patients port to right chest, called 911 due to patient's low BP. Blood pressure was 108/63 and en route it dropped to 90/56. Upon EMS arrival BP was 108/63; en route to ED, BP dropped to 90/56, IVF were given as well as 1g Tylenol. Patient complained of right sided chest pain, near port region, pain rated 6/10. Per EMS, patient has been to ED a few times over the past 8 months for similar symptoms. Initial labs showed Hgb of 9, HCT 29.7, K 3.4, CL 108. TROP 252, 290, 294. Chest x-ray showed bilateral mid to lower lung opacities, likely at least partially on the basis of pleural effusion. Prominence of the interstitial markings. Enlargement of the cardiomediastinal silhouette. Median sternotomy changes are noted. No pneumothorax. Patient was admitted for further evaluation and treatment. Pulmonary consultation is requested for evaluation and management of acute on chronic hypoxic respiratory failure and COPD exacerbation. Review of Systems: 14-point review of systems negative unless otherwise noted above. Past Medical History: COPD, hypertension, GA, A-fib, CHF, and thyroid disease Past Surgical History: Pleural drain placement Medications: Reviewed. Allergies: Morphine Penicillins. Family History: No family history of premature CAD. No family history of lung disorders. Social History: Nonsmoker. No alcohol or illicit drug use. Family History: Patient reports no known family medical history. Allergies: Coded Allergies: Morphine (Verified Allergy, Unknown, 03/31/24) Penicillins (Verified Allergy, Unknown, 03/31/24) Home Meds Reported Medications Gabapentin (Gabapentin) 600 Mg Tab, 1 TAB PO TID 04/01/24 Ottuokicoog-Diddtppwlgxy-Qkpsf (Trelegy Ellipta 200-62.5-25 Mcg/INH) 1 Aer Aer 04/01/24 Atorvastatin Calcium (ATORVASTATIN CALCIUM) 40 Mg Tab, 1 TAB PO DAILY 04/01/24 Bumetanide (Bumetanide) 1 Mg Tab, 1 TAB PO BID 04/01/24 Spironolactone (Spironolactone) 50 Mg Tab, 1 TAB PO DAILY 04/01/24 Lisinopril (Lisinopril) 10 Mg Tab, 1 TAB PO DAILY 04/01/24 Amiodarone HCl (Amiodarone HCl) 200 Mg Tab, 1 TAB PO BID 04/01/24 Carvedilol (Carvedilol) 6.25 Mg Tab, 1 TAB PO BID 04/01/24 Current Medications Current Medications Medications (Trade) Dose Ordered Sig/Aristides Route PRN Reason Start Time Stop Time Status Last Admin Acetaminophen/ Hydrocodone Bitart ([place] 5/325MG Tab) 1 tab Q4HP PRN PO MODERATE PAIN (4-6 PAIN SCALE) 06/03/25 00:15 Temazepam (Restoril) 15 mg QHSP PRN PO FOR INSOMNIA 06/03/25 00:15 Ondansetron HCl (Zofran) 4 mg Q4HP PRN IV NAUSEA / VOMITING 06/03/25 00:15 Docusate Sodium (Colace Capsule) 100 mg BIDPRN PRN PO FOR CONSTIPATION 06/03/25 00:15 Acetaminophen (Tylenol Tablet) 650 mg Q6HP PRN PO PAIN SCALE 1-3 OR TEMP>100.4 06/03/25 00:15 Hydromorphone HCl (Dilaudid Injection) 0.4 mg Q6HP PRN IV PAIN SCALE 7 THRU 10 06/03/25 00:15 Midodrine (Proamatine Tablet) 10 mg TID PO 06/03/25 00:15 06/03/25 14:50 Pantoprazole Sodium (Protonix) 40 mg DAILY IV 06/03/25 10:00 06/03/25 10:00 Nitroglycerin (Ntrostat Sublingual) 0.4 mg Q5MINP PRN SL FOR CHEST PAIN 06/03/25 00:15 Doxycycline Hyclate 100 ml @ 50 mls/hr Q12H IV 06/03/25 18:00 Albuterol (Ventolin Medneb) 2.5 mg Q6HPRN PRN NEB SHORTNESS OF BREATH 06/03/25 18:00 Heparin Sodium (Porcine) 5,000 units Q8HR SC 06/03/25 22:00 Vital Signs Vital Signs Date Time Temp Pulse Resp B/P (MAP) Pulse Ox O2 Delivery O2 Flow Rate FiO2 06/03/25 20:30 60 16 97 Nasal Cannula* 3 32 06/03/25 18:13 98.8 122/75 98.8 Physical Exam Gen.: Patient lying in bed in no apparent distress. On supplemental oxygen. Head: Normocephalic, atraumatic. Eyes: EOMI/PERRLA. Ears: Normal hearing. Normal anatomy. Neck/trachea: Trachea midline, supple. Nose: Normal external anatomy. Mouth: Moist mucous membranes. Chest: Decreased air entry bilaterally. No wheezing or rhonchi. Cardiovascular: Positive S1, positive S2. Regular rate and rhythm. Abdomen: Positive bowel sounds in all 4 quadrants. Soft, non-tender, non- distended. : Deferred. Rectal: Deferred. Skin: Warm, dry. Intact. Extremities: 2+ radial pulses bilaterally. No lower extremity edema. Neuro: Awake, alert, oriented x3. No gross motor or sensory deficits. Cranial nerves II through XII intact. Gait not assessed. Labs/Diagnostic Data Labs Test 06/02/25 22:41 06/02/25 19:41 Range/Units Troponin I High Sensitivity 294 *H </=34 ng/L White Blood Count 5.2 4.4-10.8 10^3/uL Red Blood Count 3.18 L 4.0-5.20 10^6/uL Hemoglobin 9.0 L 12.2-16.2 g/dL Hematocrit 29.7 L 36.0-46.0 % Mean Corpuscular Volume 93.6 80.0-100.0 fL Mean Corpuscular Hemoglobin 28.3 28.0-32.0 pg Mean Corpuscular Hemoglobin Concent 30.3 L 32.0-36.0 g/dL Red Cell Distribution Width 20.1 H 11.8-14.3 % Platelet Count 262 140-450 10^3/uL Mean Platelet Volume 8.4 6.9-10.8 fL Neutrophils (%) (Auto) 55.7 37.0-80.0 % Lymphocytes (%) (Auto) 26.8 10.0-50.0 % Monocytes (%) (Auto) 15.8 H 0.0-12.0 % Eosinophils (%) (Auto) 0.8 0.0-7.0 % Basophils (%) (Auto) 0.9 0.0-2.0 % Neutrophils # (Auto) 2.9 1.6-8.6 10 ^3/uL Lymphocytes # (Auto) 1.4 0.4-5.4 10 ^3/uL Monocytes # (Auto) 0.8 0-1.3 10 ^3/uL Eosinophils # (Auto) 0 0-0.8 10 ^3/uL Basophils # (Auto) 0 0-0.2 10 ^3/uL Nucleated Red Blood Cells 0.2 % Sodium Level 141 136-145 mmol/L Potassium Level 3.4 L 3.5-5.1 mmol/L Chloride Level 108 H 98-107 mmol/L Carbon Dioxide Level 23 20-31 mmol/L Anion Gap 10 5-15 Blood Urea Nitrogen 13 9-23 mg/dL Creatinine 0.87 0.550-1.02 mg/dL Glomerular Filtration Rate Calc 72 >90 mL/min BUN/Creatinine Ratio 14.9 10.0-20.0 Serum Glucose 84 74-106 mg/dL Calcium Level 7.2 L 8.7-10.4 mg/dL B-Type Natriuretic Peptide > 5000.00 0-100 pg/mL Assessment Impression: Acute on chronic hypoxic respiratory failure Dependence on supplemental oxygen Acute COPD exacerbation Acute on chronic systolic and diastolic heart failure Anemia Severe protein-calorie malnutrition Atrial fibrillation Elevated troponin Plan: Supplemental oxygen Titrate to keep O2 sats above 92%. Currently on 2 LPM NC Taper O2 as tolerated. CXR reviewed, demonstrates bilateral mid to lower lung opacities. Continue bronchodilators. AFib, elevated troponin - Follow up Cardiology recommendations Midodrine TID for blood pressure support Monitor BP due to hypotension. Monitor renal function. Monitor electrolytes. Supplement as necessary. Potassium supplementation Monitor ins and outs. Protonix for GI ppx Monitor hemoglobin Transfuse if less than 7.0 g/dL. GI/DVT prophylaxis. Prognosis: Poor given patient's multiple co-morbidities. Rest of plan per hospitalist and other consultants. Thank you, NAHOMI Baxter, for allowing me to participate in this patient's care. Further recommendations will depend on the patient's clinical course. Please do not hesitate to contact me if you have any questions or concerns. This medical document was created using an electronic medical record system with Dragon computerized dictation system. Although these documentations are being carefully reviewed, there may still be some phonetic and typographical changes. The errors are purely typographical, due to imperfection on the software program, and do not reflect any compromise in the patient's medical care. Plan discussed with: Patient, Other (RN/MD) [facility] Jun 03, 2025 21:04
[2025-06-03] MEDS: DOXYCYCLINE 100MG/100ML 100 ML IV SCH (22:39)
[2025-06-04] VITALS (10 sets, daily range): BP systolic 109–120; BP diastolic 63–74; PULSE 54–71; RESP 16–20; TEMP 97–98.4; O2SAT 97–100
[2025-06-04 06:34] LABS: Hematocrit 30.7 % (36.0-46.0); Hemoglobin 9.7 g/dL (12.2-16.2); Mean Corpuscular Hemoglobin 28.8 pg (28.0-32.0); Mean Corpuscular Volume 90.9 fL (80.0-100.0); Nucleated Red Blood Cells % 0.5 %
[2025-06-04 06:59] LABS: Anion Gap 11 (5-15); BUN/Creatinine Ratio 19.0 (10.0-20.0); Blood Urea Nitrogen 19 mg/dL (9-23); Carbon Dioxide 22 mmol/L (20-31); Chloride 107 mmol/L (98-107); Glucose 80 mg/dL (74-106); Potassium 4.3 mmol/L (3.5-5.1); Sodium 140 mmol/L (136-145)
[2025-06-04 07:00] LABS: Bilirubin, Total 0.5 mg/dL (0.2-1.0)
[2025-06-04 07:05] LABS: Alanine Aminotransferase < 9 U/L (7-40); Albumin 2.7 g/dL (3.2-4.8); Alkaline Phosphatase 156 U/L (46-116); Calcium 7.7 mg/dL (8.7-10.4); Total Protein 5.4 g/dL (5.7-8.2)
--- NOTE | 2025-06-04 14:14 | DVH ---
CHEST RADIOGRAPH Indication: CHF Technique: Single frontal view of the chest was obtained Comparison: XY CHEST XRAY 1 VIEW on DOS: 06/02/25, XR CHEST 1 VIEW on DOS: 10/19/24, XR CHEST 1 VIEW o n DOS: 10/18/24 FINDINGS: Lines and Tubes: Sternal wire sutures in place Lungs: Bibasilar airspace disease slightly worse 10 10/01/2024 Pleura: No effusion. No pneumothorax. Cardiomediastinal contours: Stable cardiomegaly Bones: No acute osseous abnormality. IMPRESSION: 1. Cardiomegaly 2. Slightly worse bibasilar airspace disease and probable pleural effusions.
--- NOTE | 2025-06-04 15:03 | DVHPN2 ---
Progress Note Date Seen: Jun 04, 2025 Medical Necessity Reason Pt with a Central, PICC or Fol: No Subjective Review of Systems: CVS:Normal, RESPIRATORY:Normal, GI:Normal Objective vital signs Vital Sign Date Time Temp Pulse Resp B/P (MAP) Pulse Ox O2 Delivery O2 Flow Rate FiO2 06/04/25 12:50 97.8 69 16 112/70 (84) 100 97.8 06/04/25 08:00 Nasal Cannula* 3 32 Total Intake and Output 06/03/25 06/03/25 06/04/25 15:00 23:00 07:00 Intake Total 440 ml Output Total 200 ml Balance 240 ml medications Current Medications Medications Dose Ordered Sig/Aristides Route Start Time Stop Time Status Last Admin Dose Admin Acetaminophen/ Hydrocodone Bitart 1 tab Q4HP PRN PO 06/03/25 00:15 06/03/25 20:55 1 TAB Temazepam 15 mg QHSP PRN PO 06/03/25 00:15 Ondansetron HCl 4 mg Q4HP PRN IV 06/03/25 00:15 Docusate Sodium 100 mg BIDPRN PRN PO 06/03/25 00:15 Acetaminophen 650 mg Q6HP PRN PO 06/03/25 00:15 Hydromorphone HCl 0.4 mg Q6HP PRN IV 06/03/25 00:15 Midodrine 10 mg TID PO 06/03/25 00:15 06/04/25 14:17 10 MG Pantoprazole Sodium 40 mg DAILY IV 06/03/25 10:00 06/04/25 10:44 40 MG Nitroglycerin 0.4 mg Q5MINP PRN SL 06/03/25 00:15 Albuterol 2.5 mg Q6HPRN PRN NEB 06/03/25 18:00 Heparin Sodium (Porcine) 5,000 units Q8HR SC 06/03/25 22:00 06/04/25 14:21 5,000 UNITS Doxycycline Hyclate 100 ml @ 50 mls/hr Q12H IV 06/03/25 23:00 06/04/25 10:52 50 MLS/HR Bumetanide 1 mg BIDD IV 06/04/25 18:00 Examination: GENERAL:Normal, LUNGS:Normal, LUNGS:Abnormal (diminished), ABDOMEN:Normal, SKIN:Normal, NEURO:Normal laboratory and microbiology Laboratory Tests 06/04/25 04:58 Test 06/04/25 04:58 Range/Units Serum Glucose 80 74-106 mg/dL Labs and/or images reviewed: Labs reviewed by me, Image(s) reviewed by me Problem List/Assessment/Plan Problem List/Assessment/Plan Chronic Systolic and Diastolic Heart Failure Assessment: Patient admitted for acute on chronic systolic and diastolic heart failure requiring inpatient management with diuretic therapy and fluid restriction. Plan: - IV Bumex 1 mg BID - 1000 ml fluid restriction - Cardiology consultation COPD Exacerbation Assessment: Patient experiencing COPD exacerbation requiring nebulizer treatments and pulmonary consultation. Plan: - MedNeb treatments - Pulmonary consultation - Continue Bumex MedNeb treatments Atrial Fibrillation Assessment: Patient with atrial fibrillation requiring cardiology evaluation and anticoagulation management. Plan: - Cardiology consultation - Continue anticoagulation Anemia Assessment: Patient with anemia requiring pulmonary consultation for evaluation. Plan: - Pulmonary consultation Bradycardia Assessment: Patient with bradycardia requiring medication adjustment. Plan: - Hold beta-blockers Hypotension Assessment: Patient with hypotension requiring blood pressure medication management. Plan: - Hold blood pressure medications Elevated Troponin Assessment: Elevated troponin levels likely secondary to demand ischemia. Plan: - Monitor Severe Protein Calorie Malnutrition Assessment: Chronic disease with risk for severe protein calorie malnutrition requiring monitoring. Plan: - Monitor Acute and Chronic Hypoxic Respiratory Failure Assessment: Patient at risk for acute and chronic hypoxic respiratory failure requiring pulmonary consultation and monitoring. Plan: - Monitor - Pulmonary consultation Plan discussed with: Patient My Orders My Orders Orders - SHI MARTIN Procedure Category Date Status Time Bumetanide Injection PHA 06/04/25 In Process (Bumex Injection) 18:00 Chest Portable XY 06/04/25 Resulted 11:17 B-Type Natriuretic LAB 06/04/25 In Process Peptide 14:35 Date of Service: Jun 04, 2025 Billing Provider: JUSTINO LIANG MD Common Visit Codes: [id number] INP/OBS CARE (MOD) SHI MARTIN Jun 04, 2025 15:03
[2025-06-04] MEDS: BUMETANIDE 1mg/4ml VIAL (0.25mg/ml) IV SCH (18:13)
--- NOTE | 2025-06-04 22:29 | DVHPN2 ---
Progress Note - Dictate Date Seen: Jun 04, 2025 Medical Necessity Reason Pt with a Central, PICC or Fol: No Subjective Patient was seen and evaluated in follow up. Patient complains of SOB. She is on 3 LPM NC. Per [facility] has accepted patient back under their services. HGB 9.7, HCT 30.7, CA 7.7. Telemetry reviewed. vital signs Vital Sign Date Time Temp Pulse Resp B/P (MAP) Pulse Ox O2 Delivery O2 Flow Rate FiO2 06/04/25 08:15 97.7 62 16 109/64 (79) 100 97.7 06/04/25 08:00 Nasal Cannula* 3 32 Total Intake and Output 06/03/25 06/03/25 06/04/25 15:00 23:00 07:00 Intake Total 440 ml Output Total 200 ml Balance 240 ml medications Current Medications Medications Dose Ordered Sig/Aristides Route Start Time Stop Time Status Last Admin Dose Admin Acetaminophen/ Hydrocodone Bitart 1 tab Q4HP PRN PO 06/03/25 00:15 06/03/25 20:55 1 TAB Temazepam 15 mg QHSP PRN PO 06/03/25 00:15 Ondansetron HCl 4 mg Q4HP PRN IV 06/03/25 00:15 Docusate Sodium 100 mg BIDPRN PRN PO 06/03/25 00:15 Acetaminophen 650 mg Q6HP PRN PO 06/03/25 00:15 Hydromorphone HCl 0.4 mg Q6HP PRN IV 06/03/25 00:15 Midodrine 10 mg TID PO 06/03/25 00:15 06/04/25 06:19 10 MG Pantoprazole Sodium 40 mg DAILY IV 06/03/25 10:00 06/04/25 10:44 40 MG Nitroglycerin 0.4 mg Q5MINP PRN SL 06/03/25 00:15 Albuterol 2.5 mg Q6HPRN PRN NEB 06/03/25 18:00 Heparin Sodium (Porcine) 5,000 units Q8HR SC 06/03/25 22:00 06/04/25 06:20 5,000 UNITS Doxycycline Hyclate 100 ml @ 50 mls/hr Q12H IV 06/03/25 23:00 06/04/25 10:52 50 MLS/HR Bumetanide 1 mg BIDD IV 06/04/25 18:00 UNV objective GENERAL: Alert and oriented x 3. No acute distress. EYES: PERRL, EOMI. Anicteric. HENT: Moist mucous membranes. LUNGS: Clear to auscultation bilaterally. CARDIOVASCULAR: Regular rate and rhythm. ABDOMEN: Soft, nontender and nondistended. EXTREMITIES: No edema. NEUROLOGIC: No focal neurological deficits. SKIN: Warm, dry. laboratory and microbiology Laboratory Tests 06/04/25 04:58 Test 06/04/25 04:58 Range/Units Serum Glucose 80 74-106 mg/dL Problem List Chest pain. SOB. Hypotension. Assessment/Plan Continued all current supportive medical care. Dilaudid and Goodrich for pain management. Diuretics with Bumex. IV antibiotics as ordered. GI prophylactics. Nitro SL. Additional plan as per the hospital course. Plan discussed with: Patient BRIANA JHA MD Jun 04, 2025 11:59
--- NOTE | 2025-06-04 23:44 | DVHPN2 ---
Progress Note - Dictate Date Seen: Jun 04, 2025 Medical Necessity Reason Pt with a Central, PICC or Fol: Yes The following are medically ne: Villagomez Catheter Reason for villagomez catheter: Strict I&O Subjective [facility] Patient seen and examined at bedside. Remains on supplemental oxygen Overnight events reviewed. vital signs Vital Sign Date Time Temp Pulse Resp B/P (MAP) Pulse Ox O2 Delivery O2 Flow Rate FiO2 06/04/25 22:36 99 Nasal Cannula* 3 32 06/04/25 21:00 97.0 67 20 120/67 (84) 97.0 Total Intake and Output 06/03/25 06/03/25 06/04/25 14:59 22:59 06:59 Intake Total 440 ml Output Total 200 ml Balance 240 ml medications Current Medications Medications Dose Ordered Sig/Aristides Route Start Time Stop Time Status Last Admin Dose Admin Acetaminophen/ Hydrocodone Bitart 1 tab Q4HP PRN PO 06/03/25 00:15 06/04/25 20:52 1 TAB Temazepam 15 mg QHSP PRN PO 06/03/25 00:15 Ondansetron HCl 4 mg Q4HP PRN IV 06/03/25 00:15 Docusate Sodium 100 mg BIDPRN PRN PO 06/03/25 00:15 Acetaminophen 650 mg Q6HP PRN PO 06/03/25 00:15 Hydromorphone HCl 0.4 mg Q6HP PRN IV 06/03/25 00:15 Midodrine 10 mg TID PO 06/03/25 00:15 06/04/25 22:59 10 MG Pantoprazole Sodium 40 mg DAILY IV 06/03/25 10:00 06/04/25 10:44 40 MG Nitroglycerin 0.4 mg Q5MINP PRN SL 06/03/25 00:15 Albuterol 2.5 mg Q6HPRN PRN NEB 06/03/25 18:00 Heparin Sodium (Porcine) 5,000 units Q8HR SC 06/03/25 22:00 06/04/25 23:18 5,000 UNITS Doxycycline Hyclate 100 ml @ 50 mls/hr Q12H IV 06/03/25 23:00 06/04/25 22:58 50 MLS/HR Bumetanide 1 mg BIDD IV 06/04/25 18:00 06/04/25 18:13 1 MG objective Gen.: Patient lying in bed in no apparent distress. On supplemental oxygen. Head: Normocephalic, atraumatic. Eyes: EOMI/PERRLA. Ears: Normal hearing. Normal anatomy. Neck/trachea: Trachea midline, supple. Nose: Normal external anatomy. Mouth: Moist mucous membranes. Chest: Decreased air entry bilaterally. No wheezing or rhonchi. Cardiovascular: Positive S1, positive S2. Regular rate and rhythm. Abdomen: Positive bowel sounds in all 4 quadrants. Soft, non-tender, non- distended. : Deferred. Rectal: Deferred. Skin: Warm, dry. Intact. Extremities: 2+ radial pulses bilaterally. No lower extremity edema. Neuro: Awake, alert, oriented x3. No gross motor or sensory deficits. Cranial nerves II through XII intact. Gait not assessed. laboratory and microbiology Laboratory Tests 06/04/25 04:58 Test 06/04/25 04:58 Range/Units Serum Glucose 80 74-106 mg/dL Assessment/Plan Impression: Acute on chronic hypoxic respiratory failure Dependence on supplemental oxygen Acute COPD exacerbation Acute on chronic systolic and diastolic heart failure Anemia Severe protein-calorie malnutrition Atrial fibrillation Elevated troponin Events: Remains on supplemental oxygen, 2 LPM NC Taper O2 as tolerated CXR today demonstrates Cardiomegaly. Slightly worse bibasilar airspace disease and probable pleural effusions. Continue bronchodilators Incentive spirometry Orders to drain PleurX Saturday to Saturday, up to 1 liter. Note, patient insists on MD draining PleurX. Awaiting supplies. Labs and imaging reviewed. Rest of plan as noted below. Plan: Supplemental oxygen Titrate to keep O2 sats above 92%. Continue bronchodilators. Incentive spirometry AFib, elevated troponin - Follow up Cardiology recommendations Midodrine TID for blood pressure support Monitor BP due to hypotension. Monitor renal function. Monitor electrolytes. Supplement as necessary. Monitor ins and outs. Protonix for GI ppx Monitor hemoglobin Transfuse if less than 7.0 g/dL. GI/DVT prophylaxis. Prognosis: Poor given patient's multiple co-morbidities. Rest of plan per hospitalist and other consultants. Thank you, NAHOMI Baxter, for allowing me to participate in this patient's care. Further recommendations will depend on the patient's clinical course. Please do not hesitate to contact me if you have any questions or concerns. This medical document was created using an electronic medical record system with [employer] dictation system. Although these documentations are being carefully reviewed, there may still be some phonetic and typographical changes. The errors are purely typographical, due to imperfection on the software program, and do not reflect any compromise in the patient's medical care. Plan discussed with: Patient, Other (RICKIE Almonte) [facility] Jun 04, 2025 23:44
[2025-06-05] VITALS (9 sets, daily range): BP systolic 101–126; BP diastolic 50–92; PULSE 59–86; RESP 16–20; TEMP 97.5–98.7; O2SAT 92–100
[2025-06-05] MEDS: ONDANSETRON HCL 4 MG/2 ML VIAL IV PRN (04:28)
--- NOTE | 2025-06-05 10:10 | DVH ---
CHEST RADIOGRAPH Indication: chf Technique: Single frontal view of the chest was obtained COMPARISON: XY CHEST PORTABLE on DOS: 06/04/25, XY CHEST XRAY 1 VIEW on DOS: 06/02/25, XR CHEST 1 VIE W on DOS: 10/19/24, XR CHEST 1 VIEW on DOS: 10/18/24, XR CHEST 1 VIEW on DOS: 10/15/24 FINDINGS: Lines and Tubes: None Lungs: Unchanged pulmonary vascular congestion. Pleura: No effusion.No pneumothorax. Cardiomediastinal contours: Median sternotomy. Cardiomegaly. Bones: Unremarkable IMPRESSION: Unchanged pulmonary vascular congestion.
--- NOTE | 2025-06-05 12:32 | DVHPN2 ---
Progress Note Date Seen: Jun 05, 2025 Medical Necessity Reason Pt with a Central, PICC or Fol: Yes The following are medically ne: Villagomez Catheter Reason for villagomez catheter: Strict I&O Subjective Review of Systems: CVS:Normal, RESPIRATORY:Normal, GI:Normal, NEURO:Normal Objective vital signs Vital Sign Date Time Temp Pulse Resp B/P (MAP) Pulse Ox O2 Delivery O2 Flow Rate FiO2 06/05/25 10:05 99 Nasal Cannula* 3 32 06/05/25 08:46 98.0 64 16 105/72 (83) 98.0 Total Intake and Output 06/04/25 06/04/25 06/05/25 15:00 23:00 07:00 Intake Total 100 ml 250 ml 100 ml Output Total 150 ml 350 ml Balance 100 ml 100 ml -250 ml medications Current Medications Medications Dose Ordered Sig/Aristides Route Start Time Stop Time Status Last Admin Dose Admin Acetaminophen/ Hydrocodone Bitart 1 tab Q4HP PRN PO 06/03/25 00:15 06/04/25 20:52 1 TAB Temazepam 15 mg QHSP PRN PO 06/03/25 00:15 Ondansetron HCl 4 mg Q4HP PRN IV 06/03/25 00:15 06/05/25 04:28 4 MG Docusate Sodium 100 mg BIDPRN PRN PO 06/03/25 00:15 Acetaminophen 650 mg Q6HP PRN PO 06/03/25 00:15 Hydromorphone HCl 0.4 mg Q6HP PRN IV 06/03/25 00:15 Midodrine 10 mg TID PO 06/03/25 00:15 06/05/25 06:29 10 MG Pantoprazole Sodium 40 mg DAILY IV 06/03/25 10:00 06/05/25 09:52 40 MG Nitroglycerin 0.4 mg Q5MINP PRN SL 06/03/25 00:15 Albuterol 2.5 mg Q6HPRN PRN NEB 06/03/25 18:00 Heparin Sodium (Porcine) 5,000 units Q8HR SC 06/03/25 22:00 06/05/25 06:40 5,000 UNITS Doxycycline Hyclate 100 ml @ 50 mls/hr Q12H IV 06/03/25 23:00 06/04/25 22:58 50 MLS/HR Bumetanide 1 mg BIDD IV 06/04/25 18:00 06/05/25 06:31 1 MG Examination: GENERAL:Normal, LUNGS:Normal, CVS:Normal, ABDOMEN:Normal, SKIN:Normal, NEURO:Normal laboratory and microbiology Laboratory Tests 06/04/25 04:58 Test 06/04/25 04:58 Range/Units Serum Glucose 80 74-106 mg/dL Labs and/or images reviewed: Labs reviewed by me Problem List/Assessment/Plan Problem List/Assessment/Plan Acute on Chronic Systolic and Diastolic Heart Failure Assessment: Patient has acute exacerbation of chronic systolic and diastolic heart failure. Chest x-ray demonstrates unchanged pulmonary vascular congestion, indicating persistent volume overload despite current management. Plan: - Continue Bumex 1 mg - Continue 1000 mL fluid restriction COPD Exacerbation Assessment: Patient experiencing acute exacerbation of chronic obstructive pulmonary disease requiring ongoing bronchodilator therapy and pulmonary consultation. Plan: - Continue nebulizer treatments - Pulmonary consultation Acute on Chronic Hypoxic Respiratory Failure Assessment: Patient has acute on chronic hypoxic respiratory failure in the setting of underlying pulmonary pathology requiring continued respiratory support and monitoring. Plan: - Pulmonary consultation - Continue nebulizer treatments - Monitor chest x-ray Atrial Fibrillation Assessment: Patient has atrial fibrillation requiring ongoing anticoagulation therapy for stroke prevention. Plan: - Continue anticoagulation Bradycardia Assessment: Patient experiencing bradycardia, likely medication-related given the need to hold beta-blockers. Plan: - Hold beta-blockers Hypotension Assessment: Patient has hypotension requiring adjustment of antihypertensive medications. Plan: - Hold blood pressure medications Elevated Troponin Assessment: Patient has elevated troponin levels, likely secondary to demand ischemia in the setting of acute illness rather than acute coronary syndrome. Anemia Assessment: Patient has anemia requiring ongoing monitoring to assess for progression or improvement. Plan: - Continue to monitor moderate Protein Malnutrition Assessment: Patient has severe protein malnutrition contributing to overall clinical condition. Plan discussed with: Patient My Orders My Orders Orders - SHI MATRIN Procedure Category Date Status Time Maintain Fluid JANET 06/04/25 In Process Restrictions 19:32 Complete Blood Count LAB 06/05/25 Logged 06:58 Basic Metabolic Panel LAB 06/05/25 Logged 06:58 Magnesium LAB 06/05/25 Logged 06:58 Chest Portable XY 06/05/25 Resulted 06:58 B-Type Natriuretic LAB 06/05/25 Logged Peptide 06:59 Communication Order ORDERS 06/05/25 Transmitted 12:23 Date of Service: Jun 05, 2025 Billing Provider: JUSTINO LIANG MD Common Visit Codes: [id number] INP/OBS CARE (MOD) SHI MARTIN [employer] Jun 05, 2025 12:32
[2025-06-05 14:49] LABS: Hematocrit 33.8 % (36.0-46.0); Hemoglobin 10.5 g/dL (12.2-16.2); Mean Corpuscular Hemoglobin 28.7 pg (28.0-32.0); Mean Corpuscular Volume 92.6 fL (80.0-100.0); Nucleated Red Blood Cells % 0.1 %
[2025-06-05 15:04] LABS: Anion Gap 10 (5-15); Carbon Dioxide 24 mmol/L (20-31); Chloride 105 mmol/L (98-107); Potassium 3.8 mmol/L (3.5-5.1); Sodium 139 mmol/L (136-145)
[2025-06-05 15:10] LABS: BUN/Creatinine Ratio 15.5 (10.0-20.0); Blood Urea Nitrogen 16 mg/dL (9-23); Calcium 8.0 mg/dL (8.7-10.4); Glucose 95 mg/dL (74-106)
[2025-06-05 15:12] LABS: Magnesium 1.4 mg/dL (1.6-2.6)
--- NOTE | 2025-06-05 18:11 | DVHPN2 ---
Progress Note - Dictate Date Seen: Jun 05, 2025 Medical Necessity Reason Pt with a Central, PICC or Fol: Yes The following are medically ne: Villagomez Catheter Reason for villagomez catheter: Strict I&O Subjective Patient was seen and evaluated in follow up. Patient is on 3 LPM NC. Chest x-ray shows unchanged pulmonary vascular congestion. Telemetry reviewed. vital signs Vital Sign Date Time Temp Pulse Resp B/P (MAP) Pulse Ox O2 Delivery O2 Flow Rate FiO2 06/05/25 10:05 99 Nasal Cannula* 3 32 06/05/25 08:46 98.0 64 16 105/72 (83) 98.0 Total Intake and Output 06/04/25 06/04/25 06/05/25 14:59 22:59 06:59 Intake Total 100 ml 250 ml 100 ml Output Total 150 ml 350 ml Balance 100 ml 100 ml -250 ml medications Current Medications Medications Dose Ordered Sig/Aristides Route Start Time Stop Time Status Last Admin Dose Admin Acetaminophen/ Hydrocodone Bitart 1 tab Q4HP PRN PO 06/03/25 00:15 06/04/25 20:52 1 TAB Temazepam 15 mg QHSP PRN PO 06/03/25 00:15 Ondansetron HCl 4 mg Q4HP PRN IV 06/03/25 00:15 06/05/25 04:28 4 MG Docusate Sodium 100 mg BIDPRN PRN PO 06/03/25 00:15 Acetaminophen 650 mg Q6HP PRN PO 06/03/25 00:15 Hydromorphone HCl 0.4 mg Q6HP PRN IV 06/03/25 00:15 Midodrine 10 mg TID PO 06/03/25 00:15 06/05/25 06:29 10 MG Pantoprazole Sodium 40 mg DAILY IV 06/03/25 10:00 06/05/25 09:52 40 MG Nitroglycerin 0.4 mg Q5MINP PRN SL 06/03/25 00:15 Albuterol 2.5 mg Q6HPRN PRN NEB 06/03/25 18:00 Heparin Sodium (Porcine) 5,000 units Q8HR SC 06/03/25 22:00 06/05/25 06:40 5,000 UNITS Doxycycline Hyclate 100 ml @ 50 mls/hr Q12H IV 06/03/25 23:00 06/04/25 22:58 50 MLS/HR Bumetanide 1 mg BIDD IV 06/04/25 18:00 06/05/25 06:31 1 MG objective GENERAL: Alert and oriented x 3. No acute distress. EYES: PERRL, EOMI. Anicteric. HENT: Moist mucous membranes. LUNGS: Clear to auscultation bilaterally. CARDIOVASCULAR: Regular rate and rhythm. ABDOMEN: Soft, nontender and nondistended. EXTREMITIES: No edema. NEUROLOGIC: No focal neurological deficits. SKIN: Warm, dry. laboratory and microbiology Laboratory Tests 06/04/25 04:58 Test 06/04/25 04:58 Range/Units Serum Glucose 80 74-106 mg/dL Problem List Chest pain. SOB. Hypotension. Assessment/Plan Continued all current supportive medical care. Midodrine. Dilaudid for pain management. Diuretics with Bumex. IV antibiotics as ordered. GI prophylactics. Nitro SL. Additional plan as per the hospital course. Plan discussed with: Patient BRIANA JHA MD Jun 05, 2025 12:28
--- NOTE | 2025-06-05 21:57 | DVHPN2 ---
Progress Note - Dictate Date Seen: Jun 05, 2025 Medical Necessity Reason Pt with a Central, PICC or Fol: Yes The following are medically ne: Villagomez Catheter Reason for villagomez catheter: Strict I&O Subjective [facility] Patient seen and examined at bedside. Remains on supplemental oxygen Overnight events reviewed. vital signs Vital Sign Date Time Temp Pulse Resp B/P (MAP) Pulse Ox O2 Delivery O2 Flow Rate FiO2 06/05/25 21:00 98.4 72 19 101/50 (67) 92 98.4 06/05/25 10:05 Nasal Cannula* 3 32 Total Intake and Output 06/04/25 06/04/25 06/05/25 15:00 23:00 07:00 Intake Total 100 ml 250 ml 100 ml Output Total 150 ml 350 ml Balance 100 ml 100 ml -250 ml medications Current Medications Medications Dose Ordered Sig/Aristides Route Start Time Stop Time Status Last Admin Dose Admin Acetaminophen/ Hydrocodone Bitart 1 tab Q4HP PRN PO 06/03/25 00:15 06/05/25 21:37 1 TAB Temazepam 15 mg QHSP PRN PO 06/03/25 00:15 Ondansetron HCl 4 mg Q4HP PRN IV 06/03/25 00:15 06/05/25 04:28 4 MG Docusate Sodium 100 mg BIDPRN PRN PO 06/03/25 00:15 Acetaminophen 650 mg Q6HP PRN PO 06/03/25 00:15 Hydromorphone HCl 0.4 mg Q6HP PRN IV 06/03/25 00:15 Midodrine 10 mg TID PO 06/03/25 00:15 06/05/25 21:37 10 MG Pantoprazole Sodium 40 mg DAILY IV 06/03/25 10:00 06/05/25 09:52 40 MG Nitroglycerin 0.4 mg Q5MINP PRN SL 06/03/25 00:15 Albuterol 2.5 mg Q6HPRN PRN NEB 06/03/25 18:00 Heparin Sodium (Porcine) 5,000 units Q8HR SC 06/03/25 22:00 06/05/25 21:44 5,000 UNITS Doxycycline Hyclate 100 ml @ 50 mls/hr Q12H IV 06/03/25 23:00 06/05/25 12:45 50 MLS/HR Bumetanide 1 mg BIDD IV 06/04/25 18:00 06/05/25 18:01 1 MG objective Gen.: Patient lying in bed in no apparent distress. On supplemental oxygen. Head: Normocephalic, atraumatic. Eyes: EOMI/PERRLA. Ears: Normal hearing. Normal anatomy. Neck/trachea: Trachea midline, supple. Nose: Normal external anatomy. Mouth: Moist mucous membranes. Chest: Decreased air entry bilaterally. No wheezing or rhonchi. Cardiovascular: Positive S1, positive S2. Regular rate and rhythm. Abdomen: Positive bowel sounds in all 4 quadrants. Soft, non-tender, non- distended. : Deferred. Rectal: Deferred. Skin: Warm, dry. Intact. Extremities: 2+ radial pulses bilaterally. No lower extremity edema. Neuro: Awake, alert, oriented x3. No gross motor or sensory deficits. Cranial nerves II through XII intact. Gait not assessed. laboratory and microbiology Laboratory Tests 06/05/25 13:50 Test 06/05/25 13:50 Range/Units Serum Glucose 95 74-106 mg/dL Assessment/Plan Impression: Acute on chronic hypoxic respiratory failure Dependence on supplemental oxygen Acute COPD exacerbation Acute on chronic systolic and diastolic heart failure Anemia Severe protein-calorie malnutrition Atrial fibrillation Elevated troponin Events: Remains on supplemental oxygen, 3 LPM NC Taper O2 as tolerated CXR today demonstrates unchanged pulmonary vascular congestion. Continue bronchodilators. Incentive spirometry Orders to drain PleurX Saturday to Saturday, up to 1 liter. Drained PleurX today, 750 mL yellow fluid removed. Maintain euvolemia Monitor renal function Physical Therapy evaluation Disposition per hospitalist. Labs and imaging reviewed. Rest of plan as noted below. Plan: Supplemental oxygen Titrate to keep O2 sats above 92%. Continue bronchodilators. Incentive spirometry AFib, elevated troponin - Follow up Cardiology recommendations Midodrine TID for blood pressure support Monitor BP due to hypotension. Monitor renal function. Monitor electrolytes. Supplement as necessary. Monitor ins and outs. Protonix for GI ppx Monitor hemoglobin Transfuse if less than 7.0 g/dL. GI/DVT prophylaxis. Prognosis: Poor given patient's multiple co-morbidities. Rest of plan per hospitalist and other consultants. Thank you, NAHOMI Baxter, for allowing me to participate in this patient's care. Further recommendations will depend on the patient's clinical course. Please do not hesitate to contact me if you have any questions or concerns. This medical document was created using an electronic medical record system with [employer] computerized dictation system. Although these documentations are being carefully reviewed, there may still be some phonetic and typographical changes. The errors are purely typographical, due to imperfection on the software program, and do not reflect any compromise in the patient's medical care. Plan discussed with: Patient, Other (RICKIE Almonte) JOE BELL [facility] Jun 05, 2025 21:57
[2025-06-06] VITALS (14 sets, daily range): BP systolic 92–123; BP diastolic 54–76; PULSE 55–85; RESP 15–18; TEMP 97.9–98.6; O2SAT 93–100
[2025-06-06] MEDS: ALBUTEROL SULF 2.5 MG/0.5ML(0.5%) NEB SOLN NEB PRN (00:20)
[2025-06-06 07:40] LABS: Hematocrit 28.5 % (36.0-46.0); Hemoglobin 9.3 g/dL (12.2-16.2); Mean Corpuscular Hemoglobin 29.0 pg (28.0-32.0); Mean Corpuscular Volume 89.1 fL (80.0-100.0); Nucleated Red Blood Cells % 0.2 %
[2025-06-06 07:59] LABS: Anion Gap 11 (5-15); BUN/Creatinine Ratio 17.7 (10.0-20.0); Blood Urea Nitrogen 17 mg/dL (9-23); Carbon Dioxide 23 mmol/L (20-31); Chloride 106 mmol/L (98-107); Glucose 84 mg/dL (74-106); Potassium 3.6 mmol/L (3.5-5.1); Sodium 140 mmol/L (136-145)
[2025-06-06 08:00] LABS: Bilirubin, Total 0.6 mg/dL (0.2-1.0)
[2025-06-06 08:01] LABS: Alanine Aminotransferase < 9 U/L (7-40); Albumin 2.8 g/dL (3.2-4.8); Alkaline Phosphatase 155 U/L (46-116); Calcium 7.5 mg/dL (8.7-10.4); Total Protein 5.7 g/dL (5.7-8.2)
--- NOTE | 2025-06-06 08:01 | DVH ---
CHEST RADIOGRAPH Indication: chf Technique: Single frontal view of the chest was obtained COMPARISON: XY CHEST PORTABLE on DOS: 06/05/25, XY CHEST PORTABLE on DOS: 06/04/25, XY CHEST XRAY 1 V IEW on DOS: 06/02/25, XR CHEST 1 VIEW on DOS: 10/19/24, XR CHEST 1 VIEW on DOS: 10/18/24 FINDINGS: Lines and Tubes: None Lungs: Moderate improvement in aeration of the lungs. Pulmonary vascular congestion. Pleura: No effusion.No pneumothorax. Cardiomediastinal contours: Median sternotomy. Cardiomegaly. Bones: Unremarkable IMPRESSION: Moderate improvement in aeration of the lungs. Pulmonary vascular congestion.
--- NOTE | 2025-06-06 16:21 | DVHPN2 ---
Progress Note Date Seen: Jun 06, 2025 Medical Necessity Reason Pt with a Central, PICC or Fol: Yes The following are medically ne: Villagomez Catheter Reason for villagomez catheter: Strict I&O Objective vital signs Vital Sign Date Time Temp Pulse Resp B/P (MAP) Pulse Ox O2 Delivery O2 Flow Rate FiO2 06/06/25 13:00 98.5 73 16 110/67 (81) 95 98.5 06/06/25 10:00 Room Air* 3 N/A Nasal Cannula* Total Intake and Output 06/05/25 06/05/25 06/06/25 15:00 23:00 07:00 Intake Total 120 ml 400 ml 300 ml Output Total 700 ml Balance 120 ml 400 ml -400 ml medications Current Medications Medications Dose Ordered Sig/Aristides Route Start Time Stop Time Status Last Admin Dose Admin Acetaminophen/ Hydrocodone Bitart 1 tab Q4HP PRN PO 06/03/25 00:15 06/05/25 21:37 1 TAB Temazepam 15 mg QHSP PRN PO 06/03/25 00:15 Ondansetron HCl 4 mg Q4HP PRN IV 06/03/25 00:15 06/05/25 04:28 4 MG Docusate Sodium 100 mg BIDPRN PRN PO 06/03/25 00:15 Acetaminophen 650 mg Q6HP PRN PO 06/03/25 00:15 Hydromorphone HCl 0.4 mg Q6HP PRN IV 06/03/25 00:15 Midodrine 10 mg TID PO 06/03/25 00:15 06/06/25 14:37 10 MG Pantoprazole Sodium 40 mg DAILY IV 06/03/25 10:00 06/06/25 09:45 40 MG Nitroglycerin 0.4 mg Q5MINP PRN SL 06/03/25 00:15 Albuterol 2.5 mg Q6HPRN PRN NEB 06/03/25 18:00 06/06/25 07:05 2.5 MG Heparin Sodium (Porcine) 5,000 units Q8HR SC 06/03/25 22:00 06/06/25 14:00 5,000 UNITS Doxycycline Hyclate 100 ml @ 50 mls/hr Q12H IV 06/03/25 23:00 06/06/25 10:56 50 MLS/HR Bumetanide 1 mg BIDD IV 06/04/25 18:00 06/06/25 05:39 1 MG Examination: GENERAL:Normal, LUNGS:Normal, CVS:Normal, ABDOMEN:Normal, SKIN:Normal laboratory and microbiology Laboratory Tests 06/06/25 07:11 Test 06/06/25 07:11 Range/Units Serum Glucose 84 74-106 mg/dL Labs and/or images reviewed: Labs reviewed by me, Image(s) reviewed by me Problem List/Assessment/Plan Problem List/Assessment/Plan Clara Goyal is admitted for acute and chronic systolic and diastolic heart failure. The patient remains on Bumex 1mg BID and is currently on a 1000-mL fluid restriction. The patient is also being treated for COPD exacerbation with nebulizer treatments and is being followed by pulmonary. Additionally, the patient has acute on chronic hypoxic respiratory failure due to acute on chronic combined systolic and diastolic heart failure and continues with diuretics and nebulizer treatments. The patient has atrial fibrillation and continues with anticoagulation. There is bradycardia present, and beta-blockers are being held. The patient has elevated troponin levels and is being followed by cardiology. The patient also has anemia and moderate protein malnutrition. Acute on Chronic Heart Failure Assessment: Patient presents with acute on chronic combined systolic and diastolic heart failure. Chest X-ray demonstrates moderate improvement in lung aeration and pulmonary vascular congestion, indicating response to treatment. Patient is currently on IV Bumex and fluid restriction. This has resulted in acute on chronic hypoxic respiratory failure requiring ongoing monitoring and management. Plan: - Continue Bumex 1 mg BID - Maintain 1000 mL fluid restriction - Continue diuretics - Monitor chest X-ray - Pulmonary following COPD Exacerbation Assessment: Patient experiencing COPD exacerbation contributing to respiratory symptoms and hypoxic respiratory failure. Plan: - Continue nebulizer treatments - Pulmonary following Atrial Fibrillation Assessment: Patient has atrial fibrillation requiring ongoing anticoagulation management. Plan: - Continue anticoagulation Bradycardia Assessment: Patient presenting with bradycardia requiring medication adjustment. Plan: - Hold beta-blockers Elevated Troponin Assessment: Troponin elevation likely secondary to dimenoskinum. Requires ongoing monitoring and cardiology evaluation. Plan: - Monitor troponin levels - Cardiology following Anemia Assessment: Patient has anemia requiring continued monitoring. Plan: - Continue to monitor Moderate Protein Malnutrition Assessment: Patient has moderate protein malnutrition requiring ongoing monitoring and treatment. Plan: - Monitor nutritional status - Continue current treatment Plan discussed with: Patient My Orders My Orders Orders - SHI MARTIN [employer]ER [employer] Procedure Category Date Status Time Chest Portable XY 06/06/25 Resulted 06:21 Date of Service: Jun 06, 2025 Billing Provider: JUSTINO LIANG MD Common Visit Codes: [id number] INP/OBS CARE (MOD) SHI MARTIN Jun 06, 2025 16:21
[2025-06-06] MEDS: ACETAMINOPHEN 325 MG TAB PO PRN (18:53)
--- NOTE | 2025-06-06 19:41 | DVHPN2 ---
Progress Note - Dictate Date Seen: Jun 06, 2025 Medical Necessity Reason Pt with a Central, PICC or Fol: Yes The following are medically ne: Villagomez Catheter Reason for villagomez catheter: Strict I&O Subjective Patient was seen and evaluated in follow up. No overnight events. Patient is stable on 3 LPM NC. HGB 9.3, HCT 28.5, CA 7.5. Chest x-ray shows moderate improvement in aeration of the lungs. There is pulmonary vascular congestion. Telemetry reviewed. vital signs Vital Sign Date Time Temp Pulse Resp B/P (MAP) Pulse Ox O2 Delivery O2 Flow Rate FiO2 06/06/25 10:00 95 Room Air* 3 N/A Nasal Cannula* 06/06/25 09:00 98.6 55 16 120/73 (89) 98.6 Total Intake and Output 06/05/25 06/05/25 06/06/25 15:00 23:00 07:00 Intake Total 120 ml 400 ml 300 ml Output Total 700 ml Balance 120 ml 400 ml -400 ml medications Current Medications Medications Dose Ordered Sig/Aristides Route Start Time Stop Time Status Last Admin Dose Admin Acetaminophen/ Hydrocodone Bitart 1 tab Q4HP PRN PO 06/03/25 00:15 06/05/25 21:37 1 TAB Temazepam 15 mg QHSP PRN PO 06/03/25 00:15 Ondansetron HCl 4 mg Q4HP PRN IV 06/03/25 00:15 06/05/25 04:28 4 MG Docusate Sodium 100 mg BIDPRN PRN PO 06/03/25 00:15 Acetaminophen 650 mg Q6HP PRN PO 06/03/25 00:15 Hydromorphone HCl 0.4 mg Q6HP PRN IV 06/03/25 00:15 Midodrine 10 mg TID PO 06/03/25 00:15 06/06/25 05:38 10 MG Pantoprazole Sodium 40 mg DAILY IV 06/03/25 10:00 06/06/25 09:45 40 MG Nitroglycerin 0.4 mg Q5MINP PRN SL 06/03/25 00:15 Albuterol 2.5 mg Q6HPRN PRN NEB 06/03/25 18:00 06/06/25 07:05 2.5 MG Heparin Sodium (Porcine) 5,000 units Q8HR SC 06/03/25 22:00 06/06/25 05:40 5,000 UNITS Doxycycline Hyclate 100 ml @ 50 mls/hr Q12H IV 06/03/25 23:00 06/06/25 10:56 50 MLS/HR Bumetanide 1 mg BIDD IV 06/04/25 18:00 06/06/25 05:39 1 MG objective GENERAL: Alert and oriented x 3. No acute distress. EYES: PERRL, EOMI. Anicteric. HENT: Moist mucous membranes. LUNGS: Clear to auscultation bilaterally. CARDIOVASCULAR: Regular rate and rhythm. ABDOMEN: Soft, nontender and nondistended. EXTREMITIES: No edema. NEUROLOGIC: No focal neurological deficits. SKIN: Warm, dry. laboratory and microbiology Laboratory Tests 06/06/25 07:11 Test 06/06/25 07:11 Range/Units Serum Glucose 84 74-106 mg/dL Problem List Chest pain. SOB. Hypotension. Assessment/Plan Continued all current supportive medical care. Midodrine. Dilaudid for pain management. Diuretics with Bumex. IV antibiotics as ordered. GI prophylactics. Nitro SL. Additional plan as per the hospital course. Plan discussed with: Patient BRIANA JHA MD Jun 06, 2025 13:17
--- NOTE | 2025-06-06 23:50 | DVHPN2 ---
Progress Note - Dictate Date Seen: Jun 06, 2025 Medical Necessity Reason Pt with a Central, PICC or Fol: Yes The following are medically ne: Villagomez Catheter Reason for villagomez catheter: Strict I&O Subjective [facility] Patient seen and examined at bedside. Remains on supplemental oxygen Overnight events reviewed. vital signs Vital Sign Date Time Temp Pulse Resp B/P (MAP) Pulse Ox O2 Delivery O2 Flow Rate FiO2 06/06/25 21:00 98.0 62 15 102/54 (70) 94 98.0 06/06/25 20:00 Room Air* 0 21 Total Intake and Output 06/05/25 06/05/25 06/06/25 15:00 23:00 07:00 Intake Total 120 ml 400 ml 300 ml Output Total 700 ml Balance 120 ml 400 ml -400 ml medications Current Medications Medications Dose Ordered Sig/Aristides Route Start Time Stop Time Status Last Admin Dose Admin Acetaminophen/ Hydrocodone Bitart 1 tab Q4HP PRN PO 06/03/25 00:15 06/06/25 20:43 1 TAB Temazepam 15 mg QHSP PRN PO 06/03/25 00:15 Ondansetron HCl 4 mg Q4HP PRN IV 06/03/25 00:15 06/05/25 04:28 4 MG Docusate Sodium 100 mg BIDPRN PRN PO 06/03/25 00:15 Acetaminophen 650 mg Q6HP PRN PO 06/03/25 00:15 06/06/25 18:53 650 MG Hydromorphone HCl 0.4 mg Q6HP PRN IV 06/03/25 00:15 Midodrine 10 mg TID PO 06/03/25 00:15 06/06/25 22:38 10 MG Pantoprazole Sodium 40 mg DAILY IV 06/03/25 10:00 06/06/25 09:45 40 MG Nitroglycerin 0.4 mg Q5MINP PRN SL 06/03/25 00:15 Albuterol 2.5 mg Q6HPRN PRN NEB 06/03/25 18:00 06/06/25 07:05 2.5 MG Heparin Sodium (Porcine) 5,000 units Q8HR SC 06/03/25 22:00 06/06/25 22:38 5,000 UNITS Doxycycline Hyclate 100 ml @ 50 mls/hr Q12H IV 06/03/25 23:00 06/06/25 22:38 50 MLS/HR Bumetanide 1 mg BIDD IV 06/04/25 18:00 06/06/25 17:43 1 MG objective Gen.: Patient lying in bed in no apparent distress. On supplemental oxygen. Head: Normocephalic, atraumatic. Eyes: EOMI/PERRLA. Ears: Normal hearing. Normal anatomy. Neck/trachea: Trachea midline, supple. Nose: Normal external anatomy. Mouth: Moist mucous membranes. Chest: Decreased air entry bilaterally. No wheezing or rhonchi. Cardiovascular: Positive S1, positive S2. Regular rate and rhythm. Abdomen: Positive bowel sounds in all 4 quadrants. Soft, non-tender, non- distended. : Deferred. Rectal: Deferred. Skin: Warm, dry. Intact. Extremities: 2+ radial pulses bilaterally. No lower extremity edema. Neuro: Awake, alert, oriented x3. No gross motor or sensory deficits. Cranial nerves II through XII intact. Gait not assessed. laboratory and microbiology Laboratory Tests 06/06/25 07:11 Test 06/06/25 07:11 Range/Units Serum Glucose 84 74-106 mg/dL Assessment/Plan Impression: Acute on chronic hypoxic respiratory failure Dependence on supplemental oxygen Acute COPD exacerbation Acute on chronic systolic and diastolic heart failure Anemia Severe protein-calorie malnutrition Atrial fibrillation Elevated troponin Events: Remains on supplemental oxygen, 3 LPM NC Taper O2 as tolerated No overnight events. Labs reviewed: HGB 9.3, HCT 28.5, CA 7.5. Chest x-ray shows moderate improvement in aeration of the lungs. There is pulmonary vascular congestion. Continue bronchodilators. Incentive spirometry Drained PleurX with 750 mL yellow fluid removed from right pleural space. Orders to drain PleurX 1 x per week. Maintain euvolemia Monitor renal function Continue supportive care. Physical Therapy evaluation Disposition per hospitalist. Labs and imaging reviewed. Rest of plan as noted below. Plan: Supplemental oxygen Titrate to keep O2 sats above 92%. Continue bronchodilators. Incentive spirometry AFib, elevated troponin - Follow up Cardiology recommendations Midodrine TID for blood pressure support Monitor BP due to hypotension. Monitor renal function. Monitor electrolytes. Supplement as necessary. Monitor ins and outs. Protonix for GI ppx Monitor hemoglobin Transfuse if less than 7.0 g/dL. GI/DVT prophylaxis. Prognosis: Poor given patient's multiple co-morbidities. Rest of plan per hospitalist and other consultants. Thank you, NAHOMI Baxter, for allowing me to participate in this patient's care. Further recommendations will depend on the patient's clinical course. Please do not hesitate to contact me if you have any questions or concerns. This medical document was created using an electronic medical record system with [employer] dictation system. Although these documentations are being carefully reviewed, there may still be some phonetic and typographical changes. The errors are purely typographical, due to imperfection on the software program, and do not reflect any compromise in the patient's medical care. Dietary Evaluation Review Recommendations by RD: Protein Supplementation Comments: 1) Initiate Ensure High Protein qd 2) Add cardiac restriction to soft diet 3) Encourage optimal PO intake 4) Follow-up with cardiology and pulmonology 5) Continue to monitor I&O, labs, and skin integrity Expected Outcomes/Goals: 1) appetite and labs to improve 2) f/u in 3-5 days Plan discussed with: Patient, Other (RICKIE Almonte) JOE BELL BANNERKedar Jun 06, 2025 23:50
[2025-06-07] VITALS (8 sets, daily range): BP systolic 100–143; BP diastolic 60–81; PULSE 58–92; RESP 15–18; TEMP 36.9; O2SAT 88–100
[2025-06-07 06:23] LABS: Hematocrit 27.7 % (36.0-46.0); Hemoglobin 9.0 g/dL (12.2-16.2); Mean Corpuscular Hemoglobin 29.1 pg (28.0-32.0); Mean Corpuscular Volume 90.0 fL (80.0-100.0); Nucleated Red Blood Cells % 0.1 %
[2025-06-07 06:40] LABS: Chloride 105 mmol/L (98-107); Potassium 3.7 mmol/L (3.5-5.1); Sodium 140 mmol/L (136-145)
[2025-06-07 06:41] LABS: Anion Gap 12 (5-15); Carbon Dioxide 23 mmol/L (20-31)
[2025-06-07 06:45] LABS: Calcium 7.6 mg/dL (8.7-10.4)
[2025-06-07 06:46] LABS: Glucose 77 mg/dL (74-106)
[2025-06-07 06:47] LABS: BUN/Creatinine Ratio 20.2 (10.0-20.0); Blood Urea Nitrogen 18 mg/dL (9-23)
[2025-06-07] MEDS ORDERED: MID10T PO ×2 (12:08→12:14)
--- NOTE | 2025-06-07 12:09 | DVHDS2 ---
Discharge Summary Date of Admission Jun 03, 2025 at 00:02 Date of Discharge: Jun 07, 2025 Labs/Diagnostic Data: Laboratory Results Test 06/07/25 05:13 06/06/25 07:11 06/05/25 13:50 06/02/25 22:41 White Blood Count 5.2 10^3/uL (4.4-10.8) Red Blood Count 3.08 10^6/uL (4.0-5.20) Hemoglobin 9.0 g/dL (12.2-16.2) Hematocrit 27.7 % (36.0-46.0) Mean Corpuscular Volume 90.0 fL (80.0-100.0) Mean Corpuscular Hemoglobin 29.1 pg (28.0-32.0) Mean Corpuscular Hemoglobin Concent 32.3 g/dL (32.0-36.0) Red Cell Distribution Width 19.2 % (11.8-14.3) Platelet Count 228 10^3/uL (140-450) Mean Platelet Volume 8.1 fL (6.9-10.8) Neutrophils (%) (Auto) 54.3 % (37.0-80.0) Lymphocytes (%) (Auto) 28.8 % (10.0-50.0) Monocytes (%) (Auto) 14.7 % (0.0-12.0) Eosinophils (%) (Auto) 1.7 % (0.0-7.0) Basophils (%) (Auto) 0.5 % (0.0-2.0) Neutrophils # (Auto) 2.9 10 ^3/uL (1.6-8.6) Lymphocytes # (Auto) 1.5 10 ^3/uL (0.4-5.4) Monocytes # (Auto) 0.8 10 ^3/uL (0-1.3) Eosinophils # (Auto) 0.1 10 ^3/uL (0-0.8) Basophils # (Auto) 0 10 ^3/uL (0-0.2) Nucleated Red Blood Cells 0.1 % Sodium Level 140 mmol/L (136-145) Potassium Level 3.7 mmol/L (3.5-5.1) Chloride Level 105 mmol/L (98-107) Carbon Dioxide Level 23 mmol/L (20-31) Anion Gap 12 (5-15) Blood Urea Nitrogen 18 mg/dL (9-23) Creatinine 0.89 mg/dL (0.550-1.02) Glomerular Filtration Rate Calc 70 mL/min (>90) BUN/Creatinine Ratio 20.2 (10.0-20.0) Serum Glucose 77 mg/dL (74-106) Calcium Level 7.6 mg/dL (8.7-10.4) Total Bilirubin 0.6 mg/dL (0.2-1.0) Aspartate Amino Transferase (AST) 15 U/L (13-40) Alanine Aminotransferase (ALT) < 9 U/L (7-40) Alkaline Phosphatase 155 U/L (46-116) Total Protein 5.7 g/dL (5.7-8.2) Albumin 2.8 g/dL (3.2-4.8) Magnesium Level 1.4 mg/dL (1.6-2.6) B-Type Natriuretic Peptide > 5000.00 pg/mL (0-100) Troponin I High Sensitivity 294 ng/L (</=34) Other Laboratory Tests 06/07/25 05:13 Brief Hx & Hospital Course: 69 year old female is complaining of hypotension that was noticed by home health nurse. Home health nurse went to drain patients port to right chest. Blood pressure was 108/63 and in route it dropped to 90/56. Patient states she is having pain to chest area where port is located. Patient was admitted on 06/03/2025 for acute on chronic hypoxic respiratory failure, recurrent pleural effusion s/p PleurX catheter. Patient has acute on chronic combined systolic and diastolic heart failure. Patient had hypotension and bradycardia. Amiodarone and blood pressure medications were placed on hold. Patient was restarted on Eliquis. Patient was seen by her handstitching machine collar feller. Diuretics were restarted. Patient had her PleurX catheter drained by Dr. Mcduffie x2. The first drainage on 06/05 with 750mL of fluid was removed. Patient was also drained on 06/07 prior to discharge and 600mL of fluid was removed. Home health was resumed with [facility]. Patient was requesting a shower nurse 3 times per week. Patient will hold blood pressure and amiodarone medications at this time. She will continue diuretics. Patient will follow up with Dr. Patel in 1 week. The patient received proper medical treatment and medications. Vital signs, Imaging and Laboratory Work was monitored. All consults recommendations were followed as provided. There were no complaints or new complaints upon discharge, all questions and concerns were answered. Patient was advised to return to the ER or call 911 if any headaches, dizziness, shortness of breath, chest pain, bleeding, fevers, or worsening of medical condition. Patient/Family was counseled about treatment plan, medications, possible side effects, patientverbalized understanding. All questions were answered to the best of my ability. The patient symptoms improved and they are okay to be DC. Condition at Discharge: Stable Final Diagnosis/Problems List Acute on chronic combined systolic and diastolic HF Acute on chronic hypoxic respiratory failure Hypotension Recurrent pleural effusion COPD exacerbation Atrial Fibrillation Bradycardia Elevated Troponin Anemia Moderate Protein Malnutrition Discharge Disposition: Home with Health Services Discharge Instruct/Medications Diet: Cardiac 2g Na,low cholest Activity: No Restrictions, As Tolerated Scheduled Atorvastatin Calcium (Atorvastatin Calcium), 1 TAB PO DAILY, (Reported) Bumetanide (Bumetanide), 1 TAB PO BID, (Reported) Gabapentin (Gabapentin), 1 TAB PO TID, (Reported) Midodrine HCl (Midodrine HCl), 10 MG PO TID Spironolactone (Spironolactone), 1 TAB PO DAILY, (Reported) Miscellaneous Medications Rvxrrtogqas-Vyohixklceiw-Yaqjc (Trelegy Ellipta 200-62.5-25 Mcg/INH), (Reported) Discontinued Medications Amiodarone HCl (Amiodarone HCl), 1 TAB PO BID, (Reported) Carvedilol (Carvedilol), 1 TAB PO BID, (Reported) Lisinopril (Lisinopril), 1 TAB PO DAILY, (Reported) Discharge Statement: "Patient was advised to return to the ER or call 911 if any headaches, dizziness, shortness of breath, chest pain, abdominal pain, bleeding, fevers, or worsening of medical condition. Patient was counseled about treatment plan, medications, possible side effects, patientverbalized understanding. All questions were answered to the best of my ability. This discharge took greater then 30 minutes in planning, reviewing documentation, counseling the patient, and discussing with other team members." ASSESSMENT ASSESSMENT Assessment Acute on chronic combined systolic and diastolic HF Acute on chronic hypoxic respiratory failure Hypotension Recurrent peural effusion COPD exacerbation GERSON NOLEN NP Jun 07, 2025 12:09
[2025-06-07] MEDS: APIXABAN 5 MG TAB PO SCH (16:03)
--- NOTE | 2025-06-07 20:03 | DVHPN2 ---
Progress Note - Dictate Date Seen: Jun 07, 2025 Medical Necessity Reason Pt with a Central, PICC or Fol: Yes The following are medically ne: Villagomez Catheter Reason for villagomez catheter: Strict I&O Subjective Patient was seen and evaluated in follow up. Patient remains on 3 LPM NC. Patient denies any complaints today. H&H stable. Telemetry reviewed. vital signs Vital Sign Date Time Temp Pulse Resp B/P (MAP) Pulse Ox O2 Delivery O2 Flow Rate FiO2 06/07/25 17:03 36.9 06/07/25 17:00 58 16 131/81 (98) 88 06/07/25 10:15 Room Air 0.0 06/07/25 10:15 21 Total Intake and Output 06/06/25 06/06/25 06/07/25 15:00 23:00 07:00 Intake Total 100 ml 820 ml 375 ml Output Total 400 ml 300 ml Balance 100 ml 420 ml 75 ml medications Current Medications Medications Dose Ordered Sig/Aristides Route Start Time Stop Time Status Last Admin Dose Admin Acetaminophen/ Hydrocodone Bitart 1 tab Q4HP PRN PO 06/03/25 00:15 06/06/25 20:43 1 TAB Temazepam 15 mg QHSP PRN PO 06/03/25 00:15 Ondansetron HCl 4 mg Q4HP PRN IV 06/03/25 00:15 06/05/25 04:28 4 MG Docusate Sodium 100 mg BIDPRN PRN PO 06/03/25 00:15 Acetaminophen 650 mg Q6HP PRN PO 06/03/25 00:15 06/06/25 18:53 650 MG Hydromorphone HCl 0.4 mg Q6HP PRN IV 06/03/25 00:15 Midodrine 10 mg TID PO 06/03/25 00:15 06/07/25 16:03 10 MG Pantoprazole Sodium 40 mg DAILY IV 06/03/25 10:00 06/07/25 09:36 40 MG Nitroglycerin 0.4 mg Q5MINP PRN SL 06/03/25 00:15 Albuterol 2.5 mg Q6HPRN PRN NEB 06/03/25 18:00 06/06/25 07:05 2.5 MG Doxycycline Hyclate 100 ml @ 50 mls/hr Q12H IV 06/03/25 23:00 06/07/25 15:58 50 MLS/HR Bumetanide 1 mg BIDD IV 06/04/25 18:00 06/07/25 05:54 1 MG Apixaban 5 mg BID PO 06/07/25 11:45 06/07/25 16:03 5 MG objective GENERAL: Alert and oriented x 3. No acute distress. EYES: PERRL, EOMI. Anicteric. HENT: Moist mucous membranes. LUNGS: Clear to auscultation bilaterally. CARDIOVASCULAR: Regular rate and rhythm. ABDOMEN: Soft, nontender and nondistended. EXTREMITIES: No edema. NEUROLOGIC: No focal neurological deficits. SKIN: Warm, dry. laboratory and microbiology Laboratory Tests 06/07/25 05:13 Test 06/07/25 05:13 Range/Units Serum Glucose 77 74-106 mg/dL Problem List Chest pain. SOB. Hypotension. Assessment/Plan Continued all current supportive medical care. Midodrine. Dilaudid for pain management. Diuretics with Bumex. IV antibiotics as ordered. GI prophylactics. Nitro SL. Additional plan as per the hospital course. Dietary Evaluation Review Recommendations by RD: Protein Supplementation Comments: 1) Initiate Ensure High Protein qd 2) Add cardiac restriction to soft diet 3) Encourage optimal PO intake 4) Follow-up with cardiology and pulmonology 5) Continue to monitor I&O, labs, and skin integrity Expected Outcomes/Goals: 1) appetite and labs to improve 2) f/u in 3-5 days Plan discussed with: Patient BRIANA JHA MD Jun 07, 2025 20:03
--- NOTE | 2025-06-07 21:54 | DVHPN2 ---
Progress Note - Dictate Date Seen: Jun 07, 2025 Medical Necessity Reason Pt with a Central, PICC or Fol: Yes The following are medically ne: Villagomez Catheter Reason for villagomez catheter: Strict I&O Subjective [facility] Patient seen and examined at bedside. Remains on supplemental oxygen Overnight events reviewed. vital signs Vital Sign Date Time Temp Pulse Resp B/P (MAP) Pulse Ox O2 Delivery O2 Flow Rate FiO2 06/07/25 17:03 36.9 06/07/25 17:00 58 16 131/81 (98) 88 06/07/25 10:15 Room Air 0.0 06/07/25 10:15 21 Total Intake and Output 06/06/25 06/06/25 06/07/25 15:00 23:00 07:00 Intake Total 100 ml 820 ml 375 ml Output Total 400 ml 300 ml Balance 100 ml 420 ml 75 ml objective Gen.: Patient lying in bed in no apparent distress. On supplemental oxygen. Head: Normocephalic, atraumatic. Eyes: EOMI/PERRLA. Ears: Normal hearing. Normal anatomy. Neck/trachea: Trachea midline, supple. Nose: Normal external anatomy. Mouth: Moist mucous membranes. Chest: Decreased air entry bilaterally. No wheezing or rhonchi. Cardiovascular: Positive S1, positive S2. Regular rate and rhythm. Abdomen: Positive bowel sounds in all 4 quadrants. Soft, non-tender, non- distended. : Deferred. Rectal: Deferred. Skin: Warm, dry. Intact. Extremities: 2+ radial pulses bilaterally. No lower extremity edema. Neuro: Awake, alert, oriented x3. No gross motor or sensory deficits. Cranial nerves II through XII intact. Gait not assessed. laboratory and microbiology Laboratory Tests 06/07/25 05:13 Test 06/07/25 05:13 Range/Units Serum Glucose 77 74-106 mg/dL Assessment/Plan Impression: Acute on chronic hypoxic respiratory failure Dependence on supplemental oxygen Acute COPD exacerbation Acute on chronic systolic and diastolic heart failure Anemia Severe protein-calorie malnutrition Atrial fibrillation Elevated troponin Events: Remains on supplemental oxygen, 2 LPM NC Taper O2 as tolerated No overnight events. Labs reviewed: HGB 9.0, HCT 27.7, CA 7.6. Chest x-ray (06/06) shows moderate improvement in aeration of the lungs. There is pulmonary vascular congestion. Continue bronchodilators. Incentive spirometry Drained PleurX with 600 mL yellow fluid removed from right pleural space. Continue to monitor Maintain euvolemia Monitor renal function Continue supportive care. Physical therapy Patient is stable for discharge from the pulmonary standpoint. Instructed to follow up with RICKIE Almonte as outpatient. Disposition per hospitalist. Labs and imaging reviewed. Rest of plan as noted below. Plan: Supplemental oxygen Titrate to keep O2 sats above 92%. Continue bronchodilators. Incentive spirometry AFib, elevated troponin - Cardiology recommendations appreciated. Midodrine TID for blood pressure support Monitor BP due to hypotension. Monitor renal function. Monitor electrolytes. Supplement as necessary. Monitor ins and outs. Protonix for GI ppx Monitor hemoglobin Transfuse if less than 7.0 g/dL. GI/DVT prophylaxis. Prognosis: Poor given patient's multiple co-morbidities. Rest of plan per hospitalist and other consultants. Thank you, NAHOMI Baxter, for allowing me to participate in this patient's care. Further recommendations will depend on the patient's clinical course. Please do not hesitate to contact me if you have any questions or concerns. This medical document was created using an electronic medical record system with [employer] dictation system. Although these documentations are being carefully reviewed, there may still be some phonetic and typographical changes. The errors are purely typographical, due to imperfection on the software program, and do not reflect any compromise in the patient's medical care. Dietary Evaluation Review Recommendations by RD: Protein Supplementation Comments: 1) Initiate Ensure High Protein qd 2) Add cardiac restriction to soft diet 3) Encourage optimal PO intake 4) Follow-up with cardiology and pulmonology 5) Continue to monitor I&O, labs, and skin integrity Expected Outcomes/Goals: 1) appetite and labs to improve 2) f/u in 3-5 days Plan discussed with: Patient, Other (RICKIE Almonte) JOE BELL [facility] Jun 07, 2025 21:54
== END 2025-06-07 19:42 | disposition home health service (06) | DRG 314 ==
LOC: EDUNIT# 18:45 → EDBD 18:45 → ER 18:51 → OVERFLOW 06-03 00:02 → TELE-WESTW 06-03 19:48
PROVIDERS: ADMIT Nurse Practitioner; ATTEND Nurse Practitioner
DX: I95.9 Hypotension, unspecified (principal); I50.43 Acute on chronic combined systolic (congestive) and diastolic (congestive) heart failure; J96.21 Acute and chronic respiratory failure with hypoxia; J44.1 Chronic obstructive pulmonary disease with (acute) exacerbation; I24.89 Other forms of acute ischemic heart disease; E44.0 Moderate protein-calorie malnutrition; I11.0 Hypertensive heart disease with heart failure; D63.8 Anemia in other chronic diseases classified elsewhere; I48.91 Unspecified atrial fibrillation; Z88.5 Allergy status to narcotic agent; Z88.0 Allergy status to penicillin; Z99.81 Dependence on supplemental oxygen; Z79.01 Long term (current) use of anticoagulants; I25.2 Old myocardial infarction; Z79.899 Other long term (current) drug therapy; Z68.22 Body mass index [BMI] 22.0-22.9, adult
CPT/HCPCS: 36415; 71045; 80048; 80053; 83735; 83880; 84484; 85025; 93005; 94640; G0378; J2405; J2470